=== PATIENT | female | born 1965 | race African-American/Black ===

== ENCOUNTER 2019-06-06 13:48 | Inpatient (IN) | payer BC ==
[2019-06-06] VITALS (7 sets, daily range): BP systolic 94–127; BP diastolic 51–66
[~2019-06-06] VITALS: Ht 165.1 cm; Wt 71.2 kg
--- NOTE | 2019-06-06 14:25 | PHYS DOC ---
Past Medical History Past Medical History: Diabetes-Type II Past Surgical History: No Surgical History Alcohol Use: None Drug Use: None Adult General Chief Complaint Chief Complaint: HYPERGLYCEMIA [facility] HPI Patient is a 53 year old female with history of newly diagnosed diabetes who presents with blood sugar and nausea and vomiting. Patient states she was diagnosed with diabetes mellitus yesterday and started the first dose of metformin last night but since last night has more than 4 episodes of vomiting without diarrhea and constipation, fever and chills, focal neuro deficit. Patient complaining of generalized weakness and low back pain without history of back pain and rated her pain 8/10. Patient had blood sugar of more than 500 at arrival to ER. Review of Systems Review of Systems Constitutional: Denies fever or chills [] Eyes: Denies change in visual acuity, redness, or eye pain [] HENT: Denies nasal congestion or sore throat [] Respiratory: Denies cough or shortness of breath [] Cardiovascular: No additional information not addressed in HPI [] GI: Denies abdominal pain, bloody stools or diarrhea, nausea and vomiting [] : Denies dysuria or hematuria [] Musculoskeletal: Denies back pain or joint pain [] Integument: Denies rash or skin lesions [] Neurologic: Denies headache, focal weakness or sensory changes [] Endocrine: Denies polyuria or polydipsia [] All other systems were reviewed and found to be within normal limits, except as documented in this note. Current Medications Current Medications Allergies Allergies Allergies Coded Allergies Type Severity Reaction Last Updated Verified No Known Drug Allergies 06/06/19 No Physical Exam Physical Exam Constitutional: Well developed, well nourished, moderate distress, non-toxic appearance. [] HENT: Normocephalic, atraumatic, dry oral mucosa Eyes: PERRLA, EOMI, conjunctiva normal, no discharge. [] Neck: Normal range of motion, no tenderness, supple, no stridor. [] Cardiovascular: Tachycardia, no murmur [] Lungs & Thorax: Bilateral breath sounds clear to auscultation [] Abdomen: Bowel sounds normal, soft, no tenderness, no masses, no pulsatile masses. [] Skin: Warm, dry, no erythema, no rash. [] Back: No tenderness, no CVA tenderness. [] Extremities: No tenderness, no cyanosis, no clubbing, ROM intact, no edema. [] Neurologic: Alert and oriented X 3, no focal deficits noted. [] Psychologic: Affect normal, judgement normal, mood normal. [] Current Patient Data Vital Signs Vital Signs Date Time Temp Pulse Resp B/P (MAP) Pulse Ox O2 Delivery O2 Flow Rate FiO2 06/06/19 14:04 110 164/88 (113) 100 Room Air 06/06/19 13:58 97.6 24 97.6 Lab Values Laboratory Tests Test 06/06/19 14:01 06/06/19 14:10 Glucose (Fingerstick) 523 mg/dL (70-99) *H White Blood Count 22.8 x10^3/uL (4.0-11.0) H Red Blood Count 4.73 x10^6/uL (3.50-5.40) Hemoglobin 14.9 g/dL (12.0-15.5) Hematocrit 46.8 % (36.0-47.0) Mean Corpuscular Volume 99 fL (79-100) Mean Corpuscular Hemoglobin 31 pg (25-35) Mean Corpuscular Hemoglobin Concent 32 g/dL (31-37) Red Cell Distribution Width 15.0 % (11.5-14.5) H Platelet Count 348 x10^3/uL (140-400) Neutrophils (%) (Auto) 90 % (31-73) H Lymphocytes (%) (Auto) 4 % (24-48) L Monocytes (%) (Auto) 6 % (0-9) Eosinophils (%) (Auto) 0 % (0-3) Basophils (%) (Auto) 0 % (0-3) Neutrophils # (Auto) 20.4 x10^3/uL (1.8-7.7) H Lymphocytes # (Auto) 0.9 x10^3/uL (1.0-4.8) L Monocytes # (Auto) 1.4 x10^3/uL (0.0-1.1) H Eosinophils # (Auto) 0.0 x10^3/uL (0.0-0.7) Basophils # (Auto) 0.1 x10^3/uL (0.0-0.2) Platelet Estimate Pending Laboratory Tests 06/06/19 14:10 EKG EKG [] Radiology/Procedures Radiology/Procedures [][facility] [address] [place] [address] IMAGING REPORT Signed PATIENT: FLORENTIN ZHOU ACCOUNT: [id number] : 1965 LOCATION: [address] [place] [address] AGE: 53 SEX: F EXAM STATUS: ADM IN ORD. PHYSICIAN: HAZEL GUARDADO MD REASON: DKA and leukocytosis PROCEDURE: PORTABLE CHEST 1V EXAM: Chest, single view. HISTORY: Diabetic ketoacidosis. Leukocytosis. COMPARISON: None. FINDINGS: A frontal view of the chest is obtained. There is no infiltrate, pleural effusion or pneumothorax. The heart is normal in size. IMPRESSION: No acute pulmonary finding. Electronically signed by: Emerita Cuevas MD (06/06/2019 3:54 PM) [place] [id number] DICTATED and SIGNED BY: EMERITA CUEVAS MD DATE: 06/06/19 0959 Course & Med Decision Making Course & Med Decision Making Pertinent Labs and Imaging studies reviewed. (See chart for details) Evaluation of patient in ER showed 53-year-old male patient who diagnosed with diabetic ketoacidosis yesterday and presented to ER with nausea vomiting and severe dehydration. Patient had tachycardia and blood sugar of more than 500 and treated with IV fluid and insulin bolus and drip partial improvement of her condition. Patient had pH of less than 7 and treated with [address] Anguiano presented to ER at 1528 and evaluated the patient.Patient requiring admission for further evaluation and treatment. Discussed with Dr. Anguiano who is in agreement with admission. Discussed findings and plan with patient and family, who acknowledge understanding and agreement. Dragon Disclaimer Dragon Disclaimer This electronic medical record was generated, in whole or in part, using a voice recognition dictation system. Departure Departure Impression: Primary Impression: Diabetic ketoacidosis Additional Impressions: Metabolic acidosis due to diabetes mellitus Leukocytosis Nausea and vomiting Low back pain Renal insufficiency Elevated lipase Disposition: ADMITTED INPATIENT (1528) Admitting Physician: Denton Anguiano (accepted admission at 1528) Condition: GUARDED Referrals: DENTON ANGUIANO MD (PCP) Critical Care Time Critical care time was 70 minutes exclusive of procedures. Problem Qualifiers Primary Impression: Diabetic ketoacidosis Diabetes mellitus type: type 2 Diabetes mellitus complication detail: without coma Qualified Codes: E11.10 - Type 2 diabetes mellitus with ketoacidosis without coma Additional Impressions: Leukocytosis Leukocytosis type: unspecified Qualified Codes: D72.829 - Elevated white blood cell count, unspecified Nausea and vomiting Vomiting type: unspecified Vomiting Intractability: unspecified Qualified Codes: R11.2 - Nausea with vomiting, unspecified Low back pain Chronicity: acute Back pain laterality: unspecified Sciatica presence: unspecified whether sciatica present Qualified Codes: M54.5 - Low back pain HAZEL GUARDADO MD Jun 06, 2019 14:25
[2019-06-06] MEDS ORDERED: ONDANSETRON PF 4 MG/2 ML VIAL. IV ONE (14:30)
[2019-06-06] MEDS ORDERED: IV NORMAL SALINE 1000ML BAG 1,000 ML IV ONE ×3 (14:30→15:00)
[2019-06-06] MEDS ORDERED: INSULIN REGULAR 100 UNIT/ML 3ML VIAL. IV ONE (14:30)
[2019-06-06] MEDS ORDERED: INSULIN,REGULAR 150 UNIT DRIP 150 ML IV ONE (14:30)
[2019-06-06 14:35] LABS: BASO # 0.1 x10^3/uL (0.0-0.2); BASO % 0 % (0-3); EOS % 0 % (0-3); HEMATOCRIT 46.8 % (36.0-47.0); HEMOGLOBIN 14.9 g/dL (12.0-15.5); LYMPH # 0.9 x10^3/uL (1.0-4.8); LYMPH % 4 % (24-48); MEAN CORPUSCULAR HEMOGLOBIN 31 pg (25-35); MEAN CORPUSCULAR HGB CONC 32 g/dL (31-37); MEAN CORPUSCULAR VOLUME 99 fL (79-100); MONO # 1.4 x10^3/uL (0.0-1.1); MONO % 6 % (0-9); NEUT # 20.4 x10^3/uL (1.8-7.7); NEUT % 90 % (31-73); PLATELET COUNT 348 x10^3/uL (140-400); RED BLOOD COUNT 4.73 x10^6/uL (3.50-5.40); WHITE BLOOD COUNT 22.8 x10^3/uL (4.0-11.0)
[2019-06-06 14:49] LABS: BASE EXCESS ABG -28 mmol/L (-3-3); HCO3 ABG 2 mmol/L (21-28); PO2 ABG 134 mmHg (75-108); SAT O2 ABG 98 % (92-99)
[2019-06-06 14:50] LABS: FIO2 ABG 21; PCO2 ABG < 15 mmHg (35-46)
[2019-06-06] MEDS ORDERED: SODIUM BICARB ADULT 8.4% 50 MEQ/50 ML DISP.SYRIN. IV ONE (15:00)
[2019-06-06 15:11] LABS: ALBUMIN 4.6 g/dL (3.4-5.0); ALK PHOS 79 U/L (46-116); ALT (SGPT) 23 U/L (14-59); AST (SGOT) 17 U/L (15-37); BLOOD UREA NITROGEN 16 mg/dL (7-20); BUN/CREATININE RATIO 11 (6-20); CALCIUM 9.6 mg/dL (8.5-10.1); CHLORIDE 93 mmol/L (98-107); CREATININE 1.4 mg/dL (0.6-1.0); GFR 47.2; LIPASE 432 U/L (73-393); MAGNESIUM 2.7 mg/dL (1.8-2.4); PHOSPHORUS 6.5 mg/dL (2.6-4.7); POTASSIUM 4.8 mmol/L (3.5-5.1); SODIUM 130 mmol/L (136-145); TOTAL BILIRUBIN 0.5 mg/dL (0.2-1.0); TOTAL PROTEIN 9.2 g/dL (6.4-8.2)
[2019-06-06 15:14] LABS: ANION GAP 32 (6-14)
[2019-06-06 15:16] LABS: GLUCOSE 567 mg/dL (70-99)
[2019-06-06 15:17] LABS: CARBON DIOXIDE < 5 mmol/L (21-32)
[2019-06-06] MEDS ORDERED: fentaNYL PF VIAL 100 MCG/2 ML VIAL IVP ONE (15:30)
[2019-06-06] MEDS ORDERED: ACETAMINOPHEN 325 MG TABLET. PO PRN (15:45)
--- NOTE | 2019-06-06 15:57 | RAD ---
EXAM: Chest, single view. HISTORY: Diabetic ketoacidosis. Leukocytosis. COMPARISON: None. FINDINGS: A frontal view of the chest is obtained. There is no infiltrate, pleural effusion or pneumothorax. The heart is normal in size. IMPRESSION: No acute pulmonary finding. Electronically signed by: Emerita Guerra MD (06/06/2019 3:54 PM) [place] [id number]
--- NOTE | 2019-06-06 16:07 | PDOC ---
Provider Note Provider Note history and physical dictated # [id number] ELKE RAYO MD Jun 06, 2019 16:07
[2019-06-06] MEDS: SODIUM BICARBONATE VIAL 100 MEQ in IV 1/2 NORMAL SALINE 1,000 ML IV SCH (16:35)
[2019-06-06] MEDS: PIPERACILLIN/TAZOBACTAM 3.375 GM in IV NORMAL SALINE 50ML 50 ML IV SCH (16:36)
[2019-06-06] MEDS: IV NORMAL SALINE 1000ML BAG 1,000 ML IV SCH (16:39)
--- NOTE | 2019-06-06 16:45 | NUR ---
Rec'd from ER per cart .Awake and alert but RR increased. VSS. IV x 2. Bicarb started. NS infusing 3rd liter. Pt denies pain at this time. Family at bedside. BC and LA drawn and Abx started. On room air. temp below normal. Blankets applied
[2019-06-06] MEDS ORDERED: FLU VAX QS 2019-20 (36MOS+)/PF 0.5 ML SYRINGE. VAX IM ONE (17:30)
--- NOTE | 2019-06-06 18:00 | NUR ---
LA 4.[address] Anguiano. order rec'd to follow DKA protocol for labs and IV fluids and Glucostabilizer for Ins gtt. Next lab at 1845. Pt states she is feeling better. No N/V. HR less. RR less/ IV x 2 patent UO good. Pt voids w/o diff Family at bedside. Ice chips offered
--- NOTE | 2019-06-06 18:28 | HP ---
ADMIT DATE: 06/06/2019 LOCATION: Intensive care unit HISTORY OF PRESENT ILLNESS: The patient is a 53-year-old white female who actually was seen in the office yesterday with a 2-week history of urine frequency, increased thirst and fatigue and with a previous history of gestational diabetes mellitus 30 years ago and no family history of diabetes who has been drinking 7 Up daily and eating some sweets and has lost 13 pounds since July 2018 on our office scale. Also complained of dysuria for a couple of days without hematuria and had a good appetite without any diarrhea or abdominal pain. In the office, urinalysis was done, which showed 4+ protein in the urine. Fingerstick showed a blood sugar of 285 and the patient was told to avoid sweets and refined carbohydrates and they check her blood sugars before meals t.i.d. at bedtime and she was given a script for glucose meter and strips and her also has a glucose meter at home and she was told to get blood test done yesterday and returned to the office in 2 days to decide what to do to treat her diabetes. She was started on metformin 500 mg b.i.d. yesterday and only took one dose last night. She apparently went out to dinner last night and during the night vomited four times. She denied any dysuria. She had some bilateral lower back discomfort. Denied any abdominal pain. There was no diarrhea. Denied any fever or chills. She went to the [facility] Emergency Room after apparently calling my medical terminologist earlier today. I was not in the office at that time. She was sent to the Emergency Room where she was noted to be in diabetic ketoacidosis. The patient's arterial blood gas showed a pH 7.97 and her pCO2 in her blood test is less than 5 with a BUN of 16, creatinine 1.4. Sodium 130, blood sugar was 567, 245 and 523 by fingerstick in the Emergency Room, magnesium was 2.7. Potassium was 4.8, lipase was elevated at 432. As mentioned, her white count was 22.8 and she had 90 polys and 4 lymphocytes. She received 10 units of regular insulin bolus in the Emergency Room. We started her on an insulin drip and ER doctor wrote for 3 liters of IV fluids. Also has Zofran ordered 4 mg IV x 1 in the ER. She was given 3000 mL of normal saline bolus ordered. She also was given 50 mg of sodium bicarbonate IV x 1 and fentanyl 50 mcg IV x 1 apparently for back pain in the Emergency Room. The patient will be admitted to the Intensive Care Unit on an insulin drip, which was started in the Emergency Room. I saw her in the Emergency Room and she was hyperventilating consistent with her diabetic ketoacidosis. Most of her history is obtained some from the patient but also provided by the at bedside. ALLERGIES AND INTOLERANCES: None. MEDICATIONS: Metformin 500 mg b.i.d., but she just took one dose last night and has not taken another dose. PAST MEDICAL HISTORY: She has a history of hyperlipidemia, allergic rhinitis. She had benign ovarian mass is excised in 1994. She has a history of gestational diabetes 30 years ago. SOCIAL HISTORY: She does not recently drink alcohol according to the , does not smoke cigarettes. FAMILY HISTORY: Not contributory for diabetes. REVIEW OF SYSTEMS: GENERAL: She denies any fever or chills. CARDIOVASCULAR: No chest pain. PULMONARY: She has shortness of breath due to diabetic ketoacidosis. ENDOCRINE: Newly diagnosed diabetes. MUSCULOSKELETAL: She does have some bilateral low back pain. GENITOURINARY: She denies any dysuria today. GASTROINTESTINAL: She had nausea and vomiting, probably from the ketoacidosis, but denies any other GI symptoms. The rest of review of systems is negative except as stated in history of present illness. PHYSICAL EXAMINATION: VITAL SIGNS: Temperature is 97.6 degrees, apical pulse is 119, respiratory rate 24, blood pressure 196/94 initially. Oxygen saturation 100% on room air. HEENT: Eyes: Gaze is conjugate. Mouth: Tongue is midline. There is no yeast. NECK: No cervical lymphadenopathy or thyroid enlargement. HEART: Reveals an S1, S2. There is no S3 or murmur. LUNGS: Clear. Examination of her back reveals no CVA tenderness bilaterally. Most of her pain is in the lumbar muscles bilaterally. ABDOMEN: Soft, bowel sounds positive, not distended with no hepatosplenomegaly, masses or tenderness. EXTREMITIES: Lower extremities without edema. Dorsalis pedis pulses present. 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 SKIN: No rashes. LABORATORY DATA: Her white count is 22.8 with a hemoglobin of 14.9, platelet count of 348,000, 90 polys and 4 lymphocytes. Arterial blood gas showed a pH 6.97, pCO2 is less than 15 and a pO2 was 134. Sodium 130, potassium 4.8, chloride 93, total CO2 was less than 5, BUN 16, creatinine 1.4, blood sugar was 567, Magnesium 2.7, phosphorus 6.5. Liver function tests were okay. Total protein was 9.2 with an albumin of 4.6 and the lipase was 432. There was no amylase done. She had small positive acetone noted. She had a chest x-ray done, which showed no acute abnormality. No infiltrate or pleural effusion. Heart size was normal. Electrocardiogram was ordered and I have not that back yet. ASSESSMENT: 1. Newly diagnosed diabetes mellitus with diabetic ketoacidosis. 2. Hyponatremia related to diabetic ketoacidosis. 3. Acute kidney injury, most likely related to acute diabetic ketoacidosis and intravascular volume depletion. 4. Leukocytosis. She does have a left shift, need to rule out an infection. PLAN: The plan at this time is to put her in the Intensive Care Unit. Continue the insulin drip. Monitor her blood sugars hourly with a goal of blood sugar between 100-150. The labs in the office were ordered and still were not back yet when I went to the office earlier today. We will get a hemoglobin A1c, check her basic metabolic profile in 4 hours and repeated every 4 hours if necessary. I spoke with the pharmacist and we will try to break her acidosis and give her IV one-half normal saline with 2 amps of sodium bicarbonate at 80 an hour and then second IV normal saline at 70 an hour for a total IV fluids 150 an hour. Once the acidosis is broken, we will discontinue the bicarbonate drip. I spoke with the ICU nurse moments ago to try to get her in the ICU as quickly as possible. We will recheck the CBC, CMP tomorrow. We will get blood cultures x 2, urinalysis, urine culture and we will consult Dr. Danie Santiago for the Leukocytosis. Repeat a CBC and CMP tomorrow. Check an amylase and lipase tomorrow. We will make her n.p.o. for the time being. I ordered Zofran 4 mg IV every 6 hours p.r.n. for nausea and vomiting. Started on some Zosyn 3.375 grams IV every 6 hours. As mentioned, the blood and urine cultures. We can order some SCDs for deep vein thrombosis prophylaxis. An EKG has been ordered also. I discussed the case with the Emergency Room physician and also the pharmacist. ELKE RAYO MD DR: ALINA/dede JOB#: [id number] / [id number]
[2019-06-06] MEDS: IV DEXTROSE 5% - 0.9 % NACL 1,000 ML IV SCH ×2 (19:00→22:41)
[2019-06-06 19:12] LABS: % BANDS 1 % (0-9); % BASOS 1 % (0-3); % LYMPHS 5 % (24-48); % MONOS 3 % (0-10); % SEGS 90 % (35-66); ANISOCYTOSIS SLIGHT; PLT ESTIMATE INCREASED (ADEQUATE); TEAR DROP CELLS OCC
[2019-06-06] MEDS ORDERED: METF500T16 PO (19:12)
[2019-06-06 20:17] LABS: HEMATOCRIT 39.3 % (36.0-47.0); RED BLOOD COUNT 4.16 x10^6/uL (3.50-5.40); RED CELL DISTRIBUTION WIDTH 14.1 % (11.5-14.5); WHITE BLOOD COUNT 17.7 x10^3/uL (4.0-11.0)
[2019-06-06 20:37] LABS: ALBUMIN 3.2 g/dL (3.4-5.0); ALBUMIN/GLOBULIN RATIO 0.9 (1.0-1.7); CALCIUM 7.8 mg/dL (8.5-10.1); GFR 69.7; PHOSPHORUS 1.4 mg/dL (2.6-4.7); POTASSIUM 3.9 mmol/L (3.5-5.1); TOTAL BILIRUBIN 0.4 mg/dL (0.2-1.0); TOTAL PROTEIN 6.7 g/dL (6.4-8.2)
[2019-06-06] MEDS ORDERED: SODIUM PHOSPHATE 20 MMOL in IV DEXTROSE 5% 250 ML IV PRN (21:15)
--- NOTE | 2019-06-06 22:00 | NUR ---
Critical CO2 of 9 called to this RN at 2036. Dr. Madsen notified at 2044. Received order to continue bicarb gtt as ordered, draw labs in am as ordered, do not draw labs Q4 hours, continue insulin gtt through tomorrow, pt to eat diabetic diet at breakfast. Nursing free text order written. Diet order added into system to start in am. Will continue to monitor.
[2019-06-06] MEDS: POTASSIUM CHLORIDE 10MEQ 100 ML IV SCH (22:40)
[2019-06-07] VITALS (14 sets, daily range): BP systolic 85–128; BP diastolic 55–80
[2019-06-07] MEDS: PIPERACILLIN/TAZOBACTAM 3.375 GM in IV NORMAL SALINE 50ML 50 ML IV SCH ×5 (00:01→23:18)
[2019-06-07] MEDS: POTASSIUM CHLORIDE 10MEQ 100 ML IV SCH ×3 (00:02→02:16)
[2019-06-07] MEDS ORDERED: INSULIN REGULAR VIAL 150 UNIT in 0.9 % SODIUM CHLORIDE 150ML 150 ML IV PRN (00:30)
[2019-06-07] MEDS: IV DEXTROSE 5% - 0.9 % NACL 1,000 ML IV SCH (03:32)
[2019-06-07] MEDS: ONDANSETRON PF 4 MG/2 ML VIAL. IVP PRN ×2 (04:09→20:55)
[2019-06-07 05:11] LABS: BASO % 0 % (0-3); EOS % 0 % (0-3); HEMATOCRIT 32.4 % (36.0-47.0); HEMOGLOBIN 11.1 g/dL (12.0-15.5); LYMPH # 1.1 x10^3/uL (1.0-4.8); LYMPH % 10 % (24-48); MEAN CORPUSCULAR HEMOGLOBIN 31 pg (25-35); MEAN CORPUSCULAR HGB CONC 34 g/dL (31-37); MEAN CORPUSCULAR VOLUME 91 fL (79-100); MONO # 1.1 x10^3/uL (0.0-1.1); MONO % 10 % (0-9); NEUT % 81 % (31-73); PLATELET COUNT 176 x10^3/uL (140-400); RED BLOOD COUNT 3.55 x10^6/uL (3.50-5.40); RED CELL DISTRIBUTION WIDTH 13.6 % (11.5-14.5); WHITE BLOOD COUNT 11.1 x10^3/uL (4.0-11.0)
[2019-06-07] MEDS: SODIUM BICARBONATE VIAL 100 MEQ in IV 1/2 NORMAL SALINE 1,000 ML IV SCH (06:16)
[2019-06-07] MEDS: IV NORMAL SALINE 1000ML BAG 1,000 ML IV SCH (06:18)
--- NOTE | 2019-06-07 07:04 | EKG ---
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
[2019-06-07 08:05] LABS: ALBUMIN 2.7 g/dL (3.4-5.0); ALBUMIN/GLOBULIN RATIO 1.1 (1.0-1.7); CALCIUM 7.3 mg/dL (8.5-10.1); CREATININE 0.8 mg/dL (0.6-1.0); GFR 90.1; MAGNESIUM 1.6 mg/dL (1.8-2.4); TOTAL BILIRUBIN 0.2 mg/dL (0.2-1.0); TOTAL PROTEIN 5.2 g/dL (6.4-8.2)
[2019-06-07 08:08] LABS: CHOLESTEROL/HDL RATIO 4.9; POTASSIUM 2.8 mmol/L (3.5-5.1)
[2019-06-07] MEDS ORDERED: POTASSIUM CHLORIDE 20 MEQ TABLET.ER. PO ONE (08:30)
[2019-06-07] MEDS ORDERED: INSULIN LISPRO 300 UNITS/3 ML VIAL. SQ SCH (08:30)
[2019-06-07] MEDS ORDERED: MAGNESIUM SULFATE 2GM 50 ML IV ONE (08:30)
[2019-06-07] MEDS ORDERED: INSULIN GLARGINE SYRINGE. SQ SCH (08:30)
[2019-06-07] MEDS: IV 1/2 NORMAL SALINE 1,000 ML IV SCH ×2 (09:00→23:18)
--- NOTE | 2019-06-07 09:06 | CONS ---
DATE OF CONSULTATION: 06/07/2019 REFERRING PHYSICIAN: Dr. Anguiano. REASON FOR CONSULTATION: Leukocytosis. HISTORY OF PRESENT ILLNESS: A 53-year-old female newly diagnosed with diabetes, who presented to the ER on 06/06/2019 with nausea, vomiting and high blood sugar. The patient started metformin the previous day, started having episodes of vomiting without diarrhea, fevers or chills. The patient had increased frequency. Denies any dysuria. Had generalized weakness, low back pain. The patient was found to have a white count of 22,000 with lactic acidosis, NEEL, hyponatremia, high amylase, high lipase. She was started on insulin. Chest x-ray did not show any acute abnormality. She was started on Zosyn. ID consult has been requested for antibiotic management. This morning, the patient feels better. She denies any further nausea or vomiting. She is hungry. Denies any diarrhea or abdominal pain, shortness of breath, headache, cough, chest pain, dysuria, hematuria, rash, sick contact. PAST MEDICAL HISTORY: Newly diagnosed diabetes, hyperlipidemia, allergic rhinitis, ovarian mass excised in 1994. SOCIAL HISTORY: Denies smoking, ETOH, or illicit drug use. Lives with her . FAMILY HISTORY: As per HPI. CURRENT MEDICATIONS: Zosyn. Other medications reviewed in medication list. ALLERGIES: None. PHYSICAL EXAMINATION: VITAL SIGNS: Temperature 98, pulse 77, respiratory rate 14, blood pressure 88/55, oxygen saturation 98% on room air. GENERAL: Alert, oriented x 3 female, lying in bed comfortably, in no acute distress, pleasant, cooperative. HEENT: Normocephalic, atraumatic, anicteric. No thrush. Oral mucosa moist. NECK: Supple, no JVD. LUNGS: Clear bilaterally. No wheezing. HEART: S1, S2. No gallops or rubs. ABDOMEN: Soft, nontender, nondistended, no rebound, no guarding. EXTREMITIES: No edema, no cyanosis, no clubbing. DERMATOLOGIC: Warm, dry. No generalized rash. LABORATORY DATA: WBC 11.1, was 22.8, hemoglobin 11.1, hematocrit 32.4, platelets 176. Sodium 142, potassium 3.8, chloride 111, bicarbonate 18, BUN 10, creatinine 0.8, glucose 130, calcium 7.3, magnesium 1.6, alkaline phosphatase 41, total protein 5.2. Amylase 132. Lipase 704. Acetone, small positive. IMAGING: Chest x-ray, no acute infiltrates. IMPRESSION: 1. Leukocytosis, likely reactive, improving. 2. Diabetic ketoacidosis. 3. Acute kidney injury. 4. Hyponatremia. 5. Newly diagnosed diabetes as above. 6. Electrolyte imbalance. 7. High amylase and lipase. RECOMMENDATIONS: 1. Continue empiric Zosyn for now. 2. Follow up cultures and susceptibility results. 3. Follow up labs in a.m. 4. Continue supportive care. 5. Discussed with nursing staff. Thank you, Dr. Anguiano, for consulting Infectious Disease to participate in this patient's care. If you have any questions, do not hesitate to contact me. CHARISSA ALEGRIA MD DR: JANIYA/dede JOB#: [id number] / [id number]
--- NOTE | 2019-06-07 10:42 | PDOC ---
PROGRESS NOTES Subjective Subjective feels better. did not eat much for breakfast as she felt full. no nausea. off of insulin drip. bblood sugar 65 and then 96. levemir and novolog held this morning but spoke with nurse and decreased insulin. lab reviewed. potassium 2.9 and magnesium 1.6 and wbc lower 11.1. albumin 2.7. ldl 141. lipase and amylase elevated. denies abdominal pain and has no abdominal tenderness Objective Objective Vital Signs Date Time Temp Pulse Resp B/P (MAP) Pulse Ox O2 Delivery O2 Flow Rate FiO2 06/07/19 06:00 77 14 85/55 (65) 98 Room Air 06/07/19 04:00 98.0 98.0 Intake and Output 06/07/19 07:00 Intake Total 4725.08 ml Output Total 1300 ml Balance 3425.08 ml Intake IV Total 4725.08 ml Output Urine Total 1300 ml Physical Exam Abdomen: Soft, No tenderness Heart: Regular rate, Normal S1, Normal S2 Extremities: No edema General: Alert HEENT: Atraumatic Lungs: Clear to auscultation Neuro: Normal speech Psych/Mental Status: Mental status NL Skin: No rashes Assessment Assessment Problems1. Newly diagnosed diabetes mellitus with diabetic ketoacidosis.resolved 2. Hyponatremia related to diabetic ketoacidosis. resolved 3. Acute kidney injury, most likely related to acute diabetic ketoacidosis and intravascular volume depletion. resolved 4. Leukocytosis better. hypomagnesemia severe hypokalemia severe protein calorie malnutrition hyperlipidemia Medical Problems: (1) Diabetic ketoacidosis Status: Acute (2) Elevated lipase Status: Acute (3) Leukocytosis Status: Acute (4) Low back pain Status: Acute (5) Metabolic acidosis due to diabetes mellitus Status: Acute (6) Nausea and vomiting Status: Acute (7) Renal insufficiency Status: Acute Plan Plan of Care d/c insulin drip d/c bicarbonate drip start levemir and novolog insulin continue iv zosyn await blood cultures replete kcl iv magnesium now diet and diabetes instruction concerning glucose meter training and insulin administration monitor blood sugars lab tomorrrow start atorvastatin Comment Review of Relevant I have reviewed the following items cain (where applicable) has been applied. Labs Laboratory Tests Test 06/06/19 14:01 06/06/19 14:10 06/06/19 14:40 06/06/19 14:45 Glucose (Fingerstick) 523 mg/dL (70-99) White Blood Count 22.8 x10^3/uL (4.0-11.0) Red Blood Count 4.73 x10^6/uL (3.50-5.40) Hemoglobin 14.9 g/dL (12.0-15.5) Hematocrit 46.8 % (36.0-47.0) Mean Corpuscular Volume 99 fL (79-100) Mean Corpuscular Hemoglobin 31 pg (25-35) Mean Corpuscular Hemoglobin Concent 32 g/dL (31-37) Red Cell Distribution Width 15.0 % (11.5-14.5) Platelet Count 348 x10^3/uL (140-400) Neutrophils (%) (Auto) 90 % (31-73) Lymphocytes (%) (Auto) 4 % (24-48) Monocytes (%) (Auto) 6 % (0-9) Eosinophils (%) (Auto) 0 % (0-3) Basophils (%) (Auto) 0 % (0-3) Neutrophils # (Auto) 20.4 x10^3/uL (1.8-7.7) Lymphocytes # (Auto) 0.9 x10^3/uL (1.0-4.8) Monocytes # (Auto) 1.4 x10^3/uL (0.0-1.1) Eosinophils # (Auto) 0.0 x10^3/uL (0.0-0.7) Basophils # (Auto) 0.1 x10^3/uL (0.0-0.2) Segmented Neutrophils % 90 % (35-66) Band Neutrophils % 1 % (0-9) Lymphocytes % 5 % (24-48) Monocytes % 3 % (0-10) Basophils % 1 % (0-3) Platelet Estimate Increased (ADEQUATE) Anisocytosis Slight Tear Drop Cells Occ O2 Saturation 98 % (92-99) Arterial Blood pH 6.97 (7.35-7.45) Arterial Blood pCO2 at Patient Temp < 15 mmHg (35-46) Arterial Blood pO2 at Patient Temp 134 mmHg (75-108) Arterial Blood HCO3 2 mmol/L (21-28) Arterial Blood Base Excess -28 mmol/L (-3-3) FiO2 21 Sodium Level 130 mmol/L (136-145) Potassium Level 4.8 mmol/L (3.5-5.1) Chloride Level 93 mmol/L (98-107) Carbon Dioxide Level < 5 mmol/L (21-32) Anion Gap 32 (6-14) Blood Urea Nitrogen 16 mg/dL (7-20) Creatinine 1.4 mg/dL (0.6-1.0) Estimated GFR (Cockcroft-Gault) 47.2 BUN/Creatinine Ratio 11 (6-20) Glucose Level 567 mg/dL (70-99) Calcium Level 9.6 mg/dL (8.5-10.1) Phosphorus Level 6.5 mg/dL (2.6-4.7) Magnesium Level 2.7 mg/dL (1.8-2.4) Total Bilirubin 0.5 mg/dL (0.2-1.0) Aspartate Amino Transf (AST/SGOT) 17 U/L (15-37) Alanine Aminotransferase (ALT/SGPT) 23 U/L (14-59) Alkaline Phosphatase 79 U/L (46-116) Total Protein 9.2 g/dL (6.4-8.2) Albumin 4.6 g/dL (3.4-5.0) Albumin/Globulin Ratio 1.0 (1.0-1.7) Lipase 432 U/L (73-393) Acetone Level Sm pos (NEG) Test 06/06/19 16:27 06/06/19 17:00 06/06/19 17:37 06/06/19 18:42 Glucose (Fingerstick) 369 mg/dL (70-99) 294 mg/dL (70-99) 214 mg/dL (70-99) Lactic Acid Level 4.5 mmol/L (0.4-2.0) Test 06/06/19 20:00 06/06/19 20:16 06/06/19 21:25 06/06/19 22:44 White Blood Count 17.7 x10^3/uL (4.0-11.0) Red Blood Count 4.16 x10^6/uL (3.50-5.40) Hemoglobin 13.0 g/dL (12.0-15.5) Hematocrit 39.3 % (36.0-47.0) Mean Corpuscular Volume 94 fL (79-100) Mean Corpuscular Hemoglobin 31 pg (25-35) Mean Corpuscular Hemoglobin Concent 33 g/dL (31-37) Red Cell Distribution Width 14.1 % (11.5-14.5) Platelet Count 210 x10^3/uL (140-400) Sodium Level 138 mmol/L (136-145) Potassium Level 3.9 mmol/L (3.5-5.1) Chloride Level 105 mmol/L (98-107) Carbon Dioxide Level 9 mmol/L (21-32) Anion Gap 24 (6-14) Blood Urea Nitrogen 16 mg/dL (7-20) Creatinine 1.0 mg/dL (0.6-1.0) Estimated GFR (Cockcroft-Gault) 69.7 BUN/Creatinine Ratio 16 (6-20) Glucose Level 230 mg/dL (70-99) Lactic Acid Level 1.8 mmol/L (0.4-2.0) Calcium Level 7.8 mg/dL (8.5-10.1) Phosphorus Level 1.4 mg/dL (2.6-4.7) Total Bilirubin 0.4 mg/dL (0.2-1.0) Aspartate Amino Transf (AST/SGOT) 16 U/L (15-37) Alanine Aminotransferase (ALT/SGPT) 15 U/L (14-59) Alkaline Phosphatase 54 U/L (46-116) Total Protein 6.7 g/dL (6.4-8.2) Albumin 3.2 g/dL (3.4-5.0) Albumin/Globulin Ratio 0.9 (1.0-1.7) Glucose (Fingerstick) 238 mg/dL (70-99) 221 mg/dL (70-99) 219 mg/dL (70-99) Test 06/06/19 23:52 06/07/19 01:20 06/07/19 02:28 06/07/19 03:37 Glucose (Fingerstick) 222 mg/dL (70-99) 225 mg/dL (70-99) 262 mg/dL (70-99) 218 mg/dL (70-99) Test 06/07/19 04:30 06/07/19 04:41 06/07/19 05:46 06/07/19 06:30 White Blood Count 11.1 x10^3/uL (4.0-11.0) Red Blood Count 3.55 x10^6/uL (3.50-5.40) Hemoglobin 11.1 g/dL (12.0-15.5) Hematocrit 32.4 % (36.0-47.0) Mean Corpuscular Volume 91 fL (79-100) Mean Corpuscular Hemoglobin 31 pg (25-35) Mean Corpuscular Hemoglobin Concent 34 g/dL (31-37) Red Cell Distribution Width 13.6 % (11.5-14.5) Platelet Count 176 x10^3/uL (140-400) Neutrophils (%) (Auto) 81 % (31-73) Lymphocytes (%) (Auto) 10 % (24-48) Monocytes (%) (Auto) 10 % (0-9) Eosinophils (%) (Auto) 0 % (0-3) Basophils (%) (Auto) 0 % (0-3) Neutrophils # (Auto) 9.0 x10^3/uL (1.8-7.7) Lymphocytes # (Auto) 1.1 x10^3/uL (1.0-4.8) Monocytes # (Auto) 1.1 x10^3/uL (0.0-1.1) Eosinophils # (Auto) 0.0 x10^3/uL (0.0-0.7) Basophils # (Auto) 0.0 x10^3/uL (0.0-0.2) Glucose (Fingerstick) 173 mg/dL (70-99) 165 mg/dL (70-99) Sodium Level 142 mmol/L (136-145) Potassium Level 2.8 mmol/L (3.5-5.1) Chloride Level 111 mmol/L (98-107) Carbon Dioxide Level 18 mmol/L (21-32) Anion Gap 13 (6-14) Blood Urea Nitrogen 10 mg/dL (7-20) Creatinine 0.8 mg/dL (0.6-1.0) Estimated GFR (Cockcroft-Gault) 90.1 BUN/Creatinine Ratio 13 (6-20) Glucose Level 130 mg/dL (70-99) Calcium Level 7.3 mg/dL (8.5-10.1) Magnesium Level 1.6 mg/dL (1.8-2.4) Total Bilirubin 0.2 mg/dL (0.2-1.0) Aspartate Amino Transf (AST/SGOT) 19 U/L (15-37) Alanine Aminotransferase (ALT/SGPT) 16 U/L (14-59) Alkaline Phosphatase 41 U/L (46-116) Total Protein 5.2 g/dL (6.4-8.2) Albumin 2.7 g/dL (3.4-5.0) Albumin/Globulin Ratio 1.1 (1.0-1.7) Triglycerides Level 63 mg/dL (0-150) Cholesterol Level 193 mg/dL (0-200) LDL Cholesterol, Calculated 141 mg/dL (0-100) VLDL Cholesterol, Calculated 13 mg/dL (0-40) Non-HDL Cholesterol Calculated 154 mg/dL (0-129) HDL Cholesterol 39 mg/dL (40-60) Cholesterol/HDL Ratio 4.9 Amylase Level 132 U/L (25-115) Lipase 704 U/L (73-393) Thyroid Stimulating Hormone (TSH) 1.162 uIU/mL (0.358-3.74) Test 06/07/19 07:05 06/07/19 08:53 06/07/19 09:40 Glucose (Fingerstick) 105 mg/dL (70-99) 65 mg/dL (70-99) 96 mg/dL (70-99) Laboratory Tests Test 06/06/19 14:01 06/06/19 14:10 06/06/19 14:40 06/06/19 14:45 Glucose (Fingerstick) 523 mg/dL (70-99) White Blood Count 22.8 x10^3/uL (4.0-11.0) Red Blood Count 4.73 x10^6/uL (3.50-5.40) Hemoglobin 14.9 g/dL (12.0-15.5) Hematocrit 46.8 % (36.0-47.0) Mean Corpuscular Volume 99 fL (79-100) Mean Corpuscular Hemoglobin 31 pg (25-35) Mean Corpuscular Hemoglobin Concent 32 g/dL (31-37) Red Cell Distribution Width 15.0 % (11.5-14.5) Platelet Count 348 x10^3/uL (140-400) Neutrophils (%) (Auto) 90 % (31-73) Lymphocytes (%) (Auto) 4 % (24-48) Monocytes (%) (Auto) 6 % (0-9) Eosinophils (%) (Auto) 0 % (0-3) Basophils (%) (Auto) 0 % (0-3) Neutrophils # (Auto) 20.4 x10^3/uL (1.8-7.7) Lymphocytes # (Auto) 0.9 x10^3/uL (1.0-4.8) Monocytes # (Auto) 1.4 x10^3/uL (0.0-1.1) Eosinophils # (Auto) 0.0 x10^3/uL (0.0-0.7) Basophils # (Auto) 0.1 x10^3/uL (0.0-0.2) Segmented Neutrophils % 90 % (35-66) Band Neutrophils % 1 % (0-9) Lymphocytes % 5 % (24-48) Monocytes % 3 % (0-10) Basophils % 1 % (0-3) Platelet Estimate Increased (ADEQUATE) Anisocytosis Slight Tear Drop Cells Occ O2 Saturation 98 % (92-99) Arterial Blood pH 6.97 (7.35-7.45) Arterial Blood pCO2 at Patient Temp < 15 mmHg (35-46) Arterial Blood pO2 at Patient Temp 134 mmHg (75-108) Arterial Blood HCO3 2 mmol/L (21-28) Arterial Blood Base Excess -28 mmol/L (-3-3) FiO2 21 Sodium Level 130 mmol/L (136-145) Potassium Level 4.8 mmol/L (3.5-5.1) Chloride Level 93 mmol/L (98-107) Carbon Dioxide Level < 5 mmol/L (21-32) Anion Gap 32 (6-14) Blood Urea Nitrogen 16 mg/dL (7-20) Creatinine 1.4 mg/dL (0.6-1.0) Estimated GFR (Cockcroft-Gault) 47.2 BUN/Creatinine Ratio 11 (6-20) Glucose Level 567 mg/dL (70-99) Calcium Level 9.6 mg/dL (8.5-10.1) Phosphorus Level 6.5 mg/dL (2.6-4.7) Magnesium Level 2.7 mg/dL (1.8-2.4) Total Bilirubin 0.5 mg/dL (0.2-1.0) Aspartate Amino Transf (AST/SGOT) 17 U/L (15-37) Alanine Aminotransferase (ALT/SGPT) 23 U/L (14-59) Alkaline Phosphatase 79 U/L (46-116) Total Protein 9.2 g/dL (6.4-8.2) Albumin 4.6 g/dL (3.4-5.0) Albumin/Globulin Ratio 1.0 (1.0-1.7) Lipase 432 U/L (73-393) Acetone Level Sm pos (NEG) Test 06/06/19 16:27 06/06/19 17:00 06/06/19 17:37 06/06/19 18:42 Glucose (Fingerstick) 369 mg/dL (70-99) 294 mg/dL (70-99) 214 mg/dL (70-99) Lactic Acid Level 4.5 mmol/L (0.4-2.0) Test 06/06/19 20:00 06/06/19 20:16 06/06/19 21:25 06/06/19 22:44 White Blood Count 17.7 x10^3/uL (4.0-11.0) Red Blood Count 4.16 x10^6/uL (3.50-5.40) Hemoglobin 13.0 g/dL (12.0-15.5) Hematocrit 39.3 % (36.0-47.0) Mean Corpuscular Volume 94 fL (79-100) Mean Corpuscular Hemoglobin 31 pg (25-35) Mean Corpuscular Hemoglobin Concent 33 g/dL (31-37) Red Cell Distribution Width 14.1 % (11.5-14.5) Platelet Count 210 x10^3/uL (140-400) Sodium Level 138 mmol/L (136-145) Potassium Level 3.9 mmol/L (3.5-5.1) Chloride Level 105 mmol/L (98-107) Carbon Dioxide Level 9 mmol/L (21-32) Anion Gap 24 (6-14) Blood Urea Nitrogen 16 mg/dL (7-20) Creatinine 1.0 mg/dL (0.6-1.0) Estimated GFR (Cockcroft-Gault) 69.7 BUN/Creatinine Ratio 16 (6-20) Glucose Level 230 mg/dL (70-99) Lactic Acid Level 1.8 mmol/L (0.4-2.0) Calcium Level 7.8 mg/dL (8.5-10.1) Phosphorus Level 1.4 mg/dL (2.6-4.7) Total Bilirubin 0.4 mg/dL (0.2-1.0) Aspartate Amino Transf (AST/SGOT) 16 U/L (15-37) Alanine Aminotransferase (ALT/SGPT) 15 U/L (14-59) Alkaline Phosphatase 54 U/L (46-116) Total Protein 6.7 g/dL (6.4-8.2) Albumin 3.2 g/dL (3.4-5.0) Albumin/Globulin Ratio 0.9 (1.0-1.7) Glucose (Fingerstick) 238 mg/dL (70-99) 221 mg/dL (70-99) 219 mg/dL (70-99) Test 06/06/19 23:52 06/07/19 01:20 06/07/19 02:28 06/07/19 03:37 Glucose (Fingerstick) 222 mg/dL (70-99) 225 mg/dL (70-99) 262 mg/dL (70-99) 218 mg/dL (70-99) Test 06/07/19 04:30 06/07/19 04:41 06/07/19 05:46 06/07/19 06:30 White Blood Count 11.1 x10^3/uL (4.0-11.0) Red Blood Count 3.55 x10^6/uL (3.50-5.40) Hemoglobin 11.1 g/dL (12.0-15.5) Hematocrit 32.4 % (36.0-47.0) Mean Corpuscular Volume 91 fL (79-100) Mean Corpuscular Hemoglobin 31 pg (25-35) Mean Corpuscular Hemoglobin Concent 34 g/dL (31-37) Red Cell Distribution Width 13.6 % (11.5-14.5) Platelet Count 176 x10^3/uL (140-400) Neutrophils (%) (Auto) 81 % (31-73) Lymphocytes (%) (Auto) 10 % (24-48) Monocytes (%) (Auto) 10 % (0-9) Eosinophils (%) (Auto) 0 % (0-3) Basophils (%) (Auto) 0 % (0-3) Neutrophils # (Auto) 9.0 x10^3/uL (1.8-7.7) Lymphocytes # (Auto) 1.1 x10^3/uL (1.0-4.8) Monocytes # (Auto) 1.1 x10^3/uL (0.0-1.1) Eosinophils # (Auto) 0.0 x10^3/uL (0.0-0.7) Basophils # (Auto) 0.0 x10^3/uL (0.0-0.2) Glucose (Fingerstick) 173 mg/dL (70-99) 165 mg/dL (70-99) Sodium Level 142 mmol/L (136-145) Potassium Level 2.8 mmol/L (3.5-5.1) Chloride Level 111 mmol/L (98-107) Carbon Dioxide Level 18 mmol/L (21-32) Anion Gap 13 (6-14) Blood Urea Nitrogen 10 mg/dL (7-20) Creatinine 0.8 mg/dL (0.6-1.0) Estimated GFR (Cockcroft-Gault) 90.1 BUN/Creatinine Ratio 13 (6-20) Glucose Level 130 mg/dL (70-99) Calcium Level 7.3 mg/dL (8.5-10.1) Magnesium Level 1.6 mg/dL (1.8-2.4) Total Bilirubin 0.2 mg/dL (0.2-1.0) Aspartate Amino Transf (AST/SGOT) 19 U/L (15-37) Alanine Aminotransferase (ALT/SGPT) 16 U/L (14-59) Alkaline Phosphatase 41 U/L (46-116) Total Protein 5.2 g/dL (6.4-8.2) Albumin 2.7 g/dL (3.4-5.0) Albumin/Globulin Ratio 1.1 (1.0-1.7) Triglycerides Level 63 mg/dL (0-150) Cholesterol Level 193 mg/dL (0-200) LDL Cholesterol, Calculated 141 mg/dL (0-100) VLDL Cholesterol, Calculated 13 mg/dL (0-40) Non-HDL Cholesterol Calculated 154 mg/dL (0-129) HDL Cholesterol 39 mg/dL (40-60) Cholesterol/HDL Ratio 4.9 Amylase Level 132 U/L (25-115) Lipase 704 U/L (73-393) Thyroid Stimulating Hormone (TSH) 1.162 uIU/mL (0.358-3.74) Test 06/07/19 07:05 06/07/19 08:53 06/07/19 09:40 Glucose (Fingerstick) 105 mg/dL (70-99) 65 mg/dL (70-99) 96 mg/dL (70-99) Medications Current Medications Ondansetron HCl (Zofran) 4 mg 1X ONCE IV Last administered on 06/06/19 14:45; Start 06/06/19 at 14:30; Stop 06/06/19 at 14:31; Status DC Sodium Chloride 1,000 ml @ 1,000 mls/hr 1X ONCE IV Last administered on 06/06/19at 14:45; Start 06/06/19 at 14:30; Stop 06/06/19 at 15:29; Status DC Sodium Chloride 1,000 ml @ 1,000 mls/hr 1X ONCE IV Last administered on 06/06/19at 14:46; Start 06/06/19 at 14:30; Stop 06/06/19 at 15:29; Status DC Insulin Human Regular 150 ml @ 0 mls/hr 1X ONCE IV Last administered on 06/06/19 14:49; Start 06/06/19 at 14:30; Stop 06/06/19 at 14:31; Status DC Insulin Human Regular (HumuLIN R VIAL) 10 unit 1X ONCE IV Last administered on 06/06/19 14:47; Start 06/06/19 at 14:30; Stop 06/06/19 at 14:31; Status DC Sodium Bicarbonate (Sodium Bicarb Adult 8.4% Syr) 50 meq 1X ONCE IV Last administered on 06/06/19 15:56; Start 06/06/19 at 15:00; Stop 06/06/19 at 15:01; Status DC Sodium Chloride 1,000 ml @ 1,000 mls/hr 1X ONCE IV Last administered on 06/06/19 16:36; Start 06/06/19 at 15:00; Stop 06/06/19 at 15:59; Status DC Fentanyl Citrate (Fentanyl 2ml Vial) 50 mcg 1X ONCE IVP Last administered on 12/5/19at 15:57; Start 06/06/19 at 15:30; Stop 06/06/19 at 15:31; Status DC Sodium Chloride 1,000 ml @ 70 mls/hr [id number] IV Last administered on 06/06/19at 16:39; Start 06/06/19 at 16:00; Stop 06/07/19 at 08:21; Status DC Sodium Bicarbonate 100 meq/Sodium Chloride 1,100 ml @ 80 mls/hr [id number] IV Last administered on 06/07/19at 06:16; Start 06/06/19 at 16:00; Stop 06/07/19 at 08:21; Status DC Piperacillin Sod/ Tazobactam Sod 3.375 gm/Sodium Chloride 50 ml @ 100 mls/hr Q6HRS IV Last administered on 06/07/19at 06:16; Start 06/06/19 at 16:00 Acetaminophen (Tylenol) 650 mg Q6HRS PRN PO MILD PAIN / TEMP Last administered on 06/07/19at 08:49; Start 06/06/19 at 15:45 Ondansetron HCl (Zofran) 4 mg PRN Q6HRS PRN IVP NAUSEA/VOMITING Last administered on 06/07/19at 04:09; Start 06/06/19 at 15:45 Influenza Virus Vaccine Quadrival (Afluria Quad 2019-20 (3yr Up) Syringe) 0.5 ml ONCE ONCE VAX IM ; Start 06/06/19 at 17:30; Stop 06/06/19 at 17:31; Status DC Dextrose/Sodium Chloride 1,000 ml @ 250 mls/hr Q4H IV Last administered on 06/07/19at 03:32; Start 06/06/19 at 19:00; Stop 06/07/19 at 08:21; Status DC Potassium Chloride/Water 100 ml @ 100 mls/hr Q1H IV Last administered on 06/07/19at 02:16; Start 06/06/19 at 22:00; Stop 06/07/19 at 01:59; Status DC Sodium Phosphate 20 mmol/Dextrose 256.6667 ml @ 62.5 mls/hr 1X PRN PRN IV SEE COMMENTS Last administered on 06/06/19at 22:40; Start 06/06/19 at 21:15 Insulin Human Regular 150 unit/ Sodium Chloride 151.5 ml @ 0 mls/hr CONT PRN IV SEE I/O RECORD Last administered on 06/07/19at 04:46; Start 06/07/19 at 00:30 Insulin Glargine (Lantus Syringe) 30 unit 1X SQ ; Start 06/07/19 at 08:30 Insulin Human Lispro (HumaLOG) 10 units TIDWMEALS SQ ; Start 06/07/19 at 08:30 Potassium Chloride (Klor-Con) 40 meq 1X ONCE PO Last administered on 06/07/19at 08:50; Start 06/07/19 at 08:30; Stop 06/07/19 at 08:31; Status DC Potassium Chloride (Klor-Con) 40 meq 1X ONCE PO ; Start 06/07/19 at 12:00; Stop 06/07/19 at 12:01 Magnesium Sulfate 50 ml @ 25 mls/hr 1X ONCE IV Last administered on 06/07/19at 08:49; Start 06/07/19 at 08:30; Stop 06/07/19 at 10:29; Status DC Sodium Chloride 1,000 ml @ 60 mls/hr [id number] IV ; Start 06/07/19 at 09:00 Active Scripts Active Reported Metformin Hcl 500 Mg Tablet 500 Mg PO BIDWMEALS Vitals/I & O Vital Sign - Last 24 Hours 06/06/19 06/06/19 06/06/19 06/06/19 13:58 14:04 14:34 15:04 Temp 97.6 97.6 Pulse 119 110 126 122 Resp 24 B/P (MAP) 196/94 (128) 164/88 (113) 174/96 (122) 180/87 (118) Pulse Ox 100 100 98 98 O2 Delivery Room Air Room Air Room Air Room Air 06/06/19 06/06/19 06/06/19 06/06/19 15:34 15:57 16:04 16:30 Temp 96.9 96.9 Pulse 112 120 120 Resp 24 28 28 B/P (MAP) 182/83 (116) 121/73 (89) 127/63 (84) Pulse Ox 100 100 100 100 O2 Delivery Room Air Room Air Room Air Room Air 06/06/19 06/06/19 06/06/19 06/06/19 17:00 17:00 19:00 20:00 Temp 97.9 98.1 97.9 98.1 Pulse 117 96 94 Resp 28 18 20 B/P (MAP) 120/66 (84) 103/61 (75) 96/59 (71) Pulse Ox 100 100 99 O2 Delivery Room Air Room Air Room Air Room Air 06/06/19 06/06/19 06/06/19 06/06/19 20:00 21:00 22:00 23:00 Pulse 90 88 86 Resp 16 16 19 B/P (MAP) 94/51 (65) 101/58 (72) 102/54 (70) Pulse Ox 100 100 100 O2 Delivery Room Air Room Air Room Air Room Air 06/06/19 06/07/19 06/07/19 06/07/19 23:59 00:01 01:00 02:00 Temp 97.9 97.9 Pulse 83 80 86 Resp 15 16 14 B/P (MAP) 101/58 (72) 117/67 (84) 100/57 (71) Pulse Ox 100 100 98 O2 Delivery Room Air Room Air Room Air Room Air 06/07/19 06/07/19 06/07/19 06/07/19 03:00 04:00 04:00 05:00 Temp 98.0 98.0 Pulse 83 81 81 Resp 16 16 15 B/P (MAP) 104/59 (74) 108/60 (76) 116/69 (85) Pulse Ox 98 98 98 O2 Delivery Room Air Room Air Room Air Room Air 06/07/19 06:00 Pulse 77 Resp 14 B/P (MAP) 85/55 (65) Pulse Ox 98 O2 Delivery Room Air Intake and Output 06/06/19 06/06/19 06/07/19 15:00 23:00 07:00 Intake Total 2765 ml 1960.08 ml Output Total 900 ml 400 ml Balance 1865 ml 1560.08 ml ELKE RAYO MD Jun 07, 2019 10:42
[2019-06-07] MEDS ORDERED: INSULIN GLARGINE SYRINGE. SQ ONE (11:00)
--- NOTE | 2019-06-07 11:22 | NUR ---
RN notified Dr. Anguiano of patient's critical K 2.8. Order received to give 40 MEQ PO now and 40 MEQ PO at 1200. Order received to give 2gm Mg IV as well. Insulin orders received-- and changed. Patient on 4U Novolog TID w/ meals, not to be given if glucose is less than 90, and 10 U Lantus at bedtime. Patient given dietary education from [employer]. RN will educate patient on insulin administration, glucose. Order received from Dr. Anguiano to transfer patient to [facility] unit and maintain patient on 1/2 NS at 60ml/hr. See EMAR.
[2019-06-07] MEDS ORDERED: POTASSIUM CHLORIDE 10 MEQ TABLET.ER. PO ONE (12:00)
[2019-06-07] MEDS: INSULIN LISPRO 300 UNITS/3 ML VIAL. SQ SCH ×2 (12:28→17:43)
--- NOTE | 2019-06-07 12:43 | NUR ---
SS following up with discharge planning. SS reviewed pt chart. Pt is from home with spouse and is currently on room air. SS will continue to follow for discharge planning.
--- NOTE | 2019-06-07 16:03 | NUR ---
Pt transferred from ICU to room 565, report received for FORTUNATO Leary.
[2019-06-07] MEDS: ATORVASTATIN CALCIUM 10 MG TABLET. PO SCH (20:52)
[2019-06-07] MEDS ORDERED: METOCLOPRAMIDE HCL 10 MG/2 ML VIAL. IVP PRN (23:15)
[2019-06-07] MEDS: PROCHLORPERAZINE 10 MG/2 ML VIAL. IV PRN (23:16)
[2019-06-08 00:07] LABS: HEMOGLOBIN A1C 14.1 % (4.8-5.6)
[2019-06-08 03:06] VITALS: BP 127/78
[2019-06-08] MEDS: PIPERACILLIN/TAZOBACTAM 3.375 GM in IV NORMAL SALINE 50ML 50 ML IV SCH ×2 (05:04→12:07)
[2019-06-08 05:41] LABS: BASO % 0 % (0-3); EOS % 0 % (0-3); HEMATOCRIT 34.5 % (36.0-47.0); HEMOGLOBIN 11.7 g/dL (12.0-15.5); LYMPH # 0.7 x10^3/uL (1.0-4.8); LYMPH % 7 % (24-48); MEAN CORPUSCULAR HEMOGLOBIN 31 pg (25-35); MEAN CORPUSCULAR HGB CONC 34 g/dL (31-37); MEAN CORPUSCULAR VOLUME 92 fL (79-100); MONO # 0.7 x10^3/uL (0.0-1.1); MONO % 7 % (0-9); NEUT # 8.3 x10^3/uL (1.8-7.7); NEUT % 85 % (31-73); PLATELET COUNT 157 x10^3/uL (140-400); RED BLOOD COUNT 3.75 x10^6/uL (3.50-5.40); WHITE BLOOD COUNT 9.7 x10^3/uL (4.0-11.0)
[2019-06-08 05:49] LABS: CREATININE 0.7 mg/dL (0.6-1.0); GFR 105.1; MAGNESIUM 2.1 mg/dL (1.8-2.4); POTASSIUM 3.8 mmol/L (3.5-5.1)
[2019-06-08 07:30] VITALS: BP 124/82
[2019-06-08] MEDS: INSULIN LISPRO 300 UNITS/3 ML VIAL. SQ SCH ×3 (09:11→17:50)
--- NOTE | 2019-06-08 11:00 | PDOC ---
PROGRESS NOTES Subjective Subjective has recurrent nausea and vomiting and not eating well. fbs 237. lab reviewed. sbc okay. bicarbonate low 14. blood cultures neg so far. amylase and lipase okay. denies abdominal pain . bowels are okay. discussed with Objective Objective Vital Signs Date Time Temp Pulse Resp B/P (MAP) Pulse Ox O2 Delivery O2 Flow Rate FiO2 06/08/19 07:30 97.9 81 20 124/82 (96) 98 Room Air 97.9 Intake and Output 06/08/19 07:00 Intake Total 1600 ml Output Total 0 ml Balance 1600 ml Intake Oral 1600 ml Output Urine Total 0 ml # Voids 3 # Bowel Movements 1 Physical Exam Abdomen: Normal bowel sounds, Soft, No tenderness Heart: Regular rate, Normal S1, Normal S2 Extremities: No edema General: Alert HEENT: Atraumatic Lungs: Clear to auscultation Neuro: Normal speech Psych/Mental Status: Mental status NL Skin: No rashes Assessment Assessment Problems1. Newly diagnosed diabetes mellitus with diabetic ketoacidosis.resolved. hyperglycemia.sodium bicarbonate still low 2. Hyponatremia related to diabetic ketoacidosis. resolved 3. Acute kidney injury, most likely related to acute diabetic ketoacidosis and intravascular volume depletion. resolved 4. Leukocytosis resolved hypomagnesemia resolved severe hypokalemia resolved severe protein calorie malnutrition hyperlipidemia nausea and vomiting. rule out diabetic gastroparesis Medical Problems: (1) Diabetic ketoacidosis Status: Acute (2) Elevated lipase Status: Acute (3) Leukocytosis Status: Acute (4) Low back pain Status: Acute (5) Metabolic acidosis due to diabetes mellitus Status: Acute (6) Nausea and vomiting Status: Acute (7) Renal insufficiency Status: Acute Plan Plan of Care increase insulin continue iv fluids start zofran ac tid and prn start metoclopramide ac tid and hs antibiotcs per ID diabetes education for insulin administration and glucose meter training and checking blood sugars Comment Review of Relevant I have reviewed the following items cain (where applicable) has been applied. Labs Laboratory Tests Test 06/06/19 14:01 06/06/19 14:10 06/06/19 14:40 06/06/19 14:45 Glucose (Fingerstick) 523 mg/dL (70-99) White Blood Count 22.8 x10^3/uL (4.0-11.0) Red Blood Count 4.73 x10^6/uL (3.50-5.40) Hemoglobin 14.9 g/dL (12.0-15.5) Hematocrit 46.8 % (36.0-47.0) Mean Corpuscular Volume 99 fL (79-100) Mean Corpuscular Hemoglobin 31 pg (25-35) Mean Corpuscular Hemoglobin Concent 32 g/dL (31-37) Red Cell Distribution Width 15.0 % (11.5-14.5) Platelet Count 348 x10^3/uL (140-400) Neutrophils (%) (Auto) 90 % (31-73) Lymphocytes (%) (Auto) 4 % (24-48) Monocytes (%) (Auto) 6 % (0-9) Eosinophils (%) (Auto) 0 % (0-3) Basophils (%) (Auto) 0 % (0-3) Neutrophils # (Auto) 20.4 x10^3/uL (1.8-7.7) Lymphocytes # (Auto) 0.9 x10^3/uL (1.0-4.8) Monocytes # (Auto) 1.4 x10^3/uL (0.0-1.1) Eosinophils # (Auto) 0.0 x10^3/uL (0.0-0.7) Basophils # (Auto) 0.1 x10^3/uL (0.0-0.2) Segmented Neutrophils % 90 % (35-66) Band Neutrophils % 1 % (0-9) Lymphocytes % 5 % (24-48) Monocytes % 3 % (0-10) Basophils % 1 % (0-3) Platelet Estimate Increased (ADEQUATE) Anisocytosis Slight Tear Drop Cells Occ O2 Saturation 98 % (92-99) Arterial Blood pH 6.97 (7.35-7.45) Arterial Blood pCO2 at Patient Temp < 15 mmHg (35-46) Arterial Blood pO2 at Patient Temp 134 mmHg (75-108) Arterial Blood HCO3 2 mmol/L (21-28) Arterial Blood Base Excess -28 mmol/L (-3-3) FiO2 21 Sodium Level 130 mmol/L (136-145) Potassium Level 4.8 mmol/L (3.5-5.1) Chloride Level 93 mmol/L (98-107) Carbon Dioxide Level < 5 mmol/L (21-32) Anion Gap 32 (6-14) Blood Urea Nitrogen 16 mg/dL (7-20) Creatinine 1.4 mg/dL (0.6-1.0) Estimated GFR (Cockcroft-Gault) 47.2 BUN/Creatinine Ratio 11 (6-20) Glucose Level 567 mg/dL (70-99) Calcium Level 9.6 mg/dL (8.5-10.1) Phosphorus Level 6.5 mg/dL (2.6-4.7) Magnesium Level 2.7 mg/dL (1.8-2.4) Total Bilirubin 0.5 mg/dL (0.2-1.0) Aspartate Amino Transf (AST/SGOT) 17 U/L (15-37) Alanine Aminotransferase (ALT/SGPT) 23 U/L (14-59) Alkaline Phosphatase 79 U/L (46-116) Total Protein 9.2 g/dL (6.4-8.2) Albumin 4.6 g/dL (3.4-5.0) Albumin/Globulin Ratio 1.0 (1.0-1.7) Lipase 432 U/L (73-393) Acetone Level Sm pos (NEG) Test 06/06/19 16:27 06/06/19 17:00 06/06/19 17:37 06/06/19 18:42 Glucose (Fingerstick) 369 mg/dL (70-99) 294 mg/dL (70-99) 214 mg/dL (70-99) Lactic Acid Level 4.5 mmol/L (0.4-2.0) Test 06/06/19 20:00 06/06/19 20:16 06/06/19 21:25 06/06/19 22:44 White Blood Count 17.7 x10^3/uL (4.0-11.0) Red Blood Count 4.16 x10^6/uL (3.50-5.40) Hemoglobin 13.0 g/dL (12.0-15.5) Hematocrit 39.3 % (36.0-47.0) Mean Corpuscular Volume 94 fL (79-100) Mean Corpuscular Hemoglobin 31 pg (25-35) Mean Corpuscular Hemoglobin Concent 33 g/dL (31-37) Red Cell Distribution Width 14.1 % (11.5-14.5) Platelet Count 210 x10^3/uL (140-400) Sodium Level 138 mmol/L (136-145) Potassium Level 3.9 mmol/L (3.5-5.1) Chloride Level 105 mmol/L (98-107) Carbon Dioxide Level 9 mmol/L (21-32) Anion Gap 24 (6-14) Blood Urea Nitrogen 16 mg/dL (7-20) Creatinine 1.0 mg/dL (0.6-1.0) Estimated GFR (Cockcroft-Gault) 69.7 BUN/Creatinine Ratio 16 (6-20) Glucose Level 230 mg/dL (70-99) Lactic Acid Level 1.8 mmol/L (0.4-2.0) Calcium Level 7.8 mg/dL (8.5-10.1) Phosphorus Level 1.4 mg/dL (2.6-4.7) Total Bilirubin 0.4 mg/dL (0.2-1.0) Aspartate Amino Transf (AST/SGOT) 16 U/L (15-37) Alanine Aminotransferase (ALT/SGPT) 15 U/L (14-59) Alkaline Phosphatase 54 U/L (46-116) Total Protein 6.7 g/dL (6.4-8.2) Albumin 3.2 g/dL (3.4-5.0) Albumin/Globulin Ratio 0.9 (1.0-1.7) Glucose (Fingerstick) 238 mg/dL (70-99) 221 mg/dL (70-99) 219 mg/dL (70-99) Test 06/06/19 23:52 06/07/19 01:20 06/07/19 02:28 06/07/19 03:37 Glucose (Fingerstick) 222 mg/dL (70-99) 225 mg/dL (70-99) 262 mg/dL (70-99) 218 mg/dL (70-99) Test 06/07/19 04:30 06/07/19 04:41 06/07/19 05:46 06/07/19 06:30 White Blood Count 11.1 x10^3/uL (4.0-11.0) Red Blood Count 3.55 x10^6/uL (3.50-5.40) Hemoglobin 11.1 g/dL (12.0-15.5) Hematocrit 32.4 % (36.0-47.0) Mean Corpuscular Volume 91 fL (79-100) Mean Corpuscular Hemoglobin 31 pg (25-35) Mean Corpuscular Hemoglobin Concent 34 g/dL (31-37) Red Cell Distribution Width 13.6 % (11.5-14.5) Platelet Count 176 x10^3/uL (140-400) Neutrophils (%) (Auto) 81 % (31-73) Lymphocytes (%) (Auto) 10 % (24-48) Monocytes (%) (Auto) 10 % (0-9) Eosinophils (%) (Auto) 0 % (0-3) Basophils (%) (Auto) 0 % (0-3) Neutrophils # (Auto) 9.0 x10^3/uL (1.8-7.7) Lymphocytes # (Auto) 1.1 x10^3/uL (1.0-4.8) Monocytes # (Auto) 1.1 x10^3/uL (0.0-1.1) Eosinophils # (Auto) 0.0 x10^3/uL (0.0-0.7) Basophils # (Auto) 0.0 x10^3/uL (0.0-0.2) Hemoglobin A1c 14.1 % (4.8-5.6) Glucose (Fingerstick) 173 mg/dL (70-99) 165 mg/dL (70-99) Sodium Level 142 mmol/L (136-145) Potassium Level 2.8 mmol/L (3.5-5.1) Chloride Level 111 mmol/L (98-107) Carbon Dioxide Level 18 mmol/L (21-32) Anion Gap 13 (6-14) Blood Urea Nitrogen 10 mg/dL (7-20) Creatinine 0.8 mg/dL (0.6-1.0) Estimated GFR (Cockcroft-Gault) 90.1 BUN/Creatinine Ratio 13 (6-20) Glucose Level 130 mg/dL (70-99) Calcium Level 7.3 mg/dL (8.5-10.1) Magnesium Level 1.6 mg/dL (1.8-2.4) Total Bilirubin 0.2 mg/dL (0.2-1.0) Aspartate Amino Transf (AST/SGOT) 19 U/L (15-37) Alanine Aminotransferase (ALT/SGPT) 16 U/L (14-59) Alkaline Phosphatase 41 U/L (46-116) Total Protein 5.2 g/dL (6.4-8.2) Albumin 2.7 g/dL (3.4-5.0) Albumin/Globulin Ratio 1.1 (1.0-1.7) Triglycerides Level 63 mg/dL (0-150) Cholesterol Level 193 mg/dL (0-200) LDL Cholesterol, Calculated 141 mg/dL (0-100) VLDL Cholesterol, Calculated 13 mg/dL (0-40) Non-HDL Cholesterol Calculated 154 mg/dL (0-129) HDL Cholesterol 39 mg/dL (40-60) Cholesterol/HDL Ratio 4.9 Amylase Level 132 U/L (25-115) Lipase 704 U/L (73-393) Thyroid Stimulating Hormone (TSH) 1.162 uIU/mL (0.358-3.74) Test 06/07/19 07:05 06/07/19 08:53 06/07/19 09:40 06/07/19 11:06 Glucose (Fingerstick) 105 mg/dL (70-99) 65 mg/dL (70-99) 96 mg/dL (70-99) 172 mg/dL (70-99) Test 06/07/19 12:21 06/07/19 16:42 06/07/19 20:33 06/08/19 04:45 Glucose (Fingerstick) 171 mg/dL (70-99) 261 mg/dL (70-99) 194 mg/dL (70-99) White Blood Count 9.7 x10^3/uL (4.0-11.0) Red Blood Count 3.75 x10^6/uL (3.50-5.40) Hemoglobin 11.7 g/dL (12.0-15.5) Hematocrit 34.5 % (36.0-47.0) Mean Corpuscular Volume 92 fL (79-100) Mean Corpuscular Hemoglobin 31 pg (25-35) Mean Corpuscular Hemoglobin Concent 34 g/dL (31-37) Red Cell Distribution Width 14.0 % (11.5-14.5) Platelet Count 157 x10^3/uL (140-400) Neutrophils (%) (Auto) 85 % (31-73) Lymphocytes (%) (Auto) 7 % (24-48) Monocytes (%) (Auto) 7 % (0-9) Eosinophils (%) (Auto) 0 % (0-3) Basophils (%) (Auto) 0 % (0-3) Neutrophils # (Auto) 8.3 x10^3/uL (1.8-7.7) Lymphocytes # (Auto) 0.7 x10^3/uL (1.0-4.8) Monocytes # (Auto) 0.7 x10^3/uL (0.0-1.1) Eosinophils # (Auto) 0.0 x10^3/uL (0.0-0.7) Basophils # (Auto) 0.0 x10^3/uL (0.0-0.2) Sodium Level 137 mmol/L (136-145) Potassium Level 3.8 mmol/L (3.5-5.1) Chloride Level 104 mmol/L (98-107) Carbon Dioxide Level 14 mmol/L (21-32) Anion Gap 19 (6-14) Blood Urea Nitrogen 8 mg/dL (7-20) Creatinine 0.7 mg/dL (0.6-1.0) Estimated GFR (Cockcroft-Gault) 105.1 Glucose Level 272 mg/dL (70-99) Calcium Level 8.0 mg/dL (8.5-10.1) Magnesium Level 2.1 mg/dL (1.8-2.4) Amylase Level 46 U/L (25-115) Lipase 177 U/L (73-393) Test 06/08/19 07:49 Glucose (Fingerstick) 237 mg/dL (70-99) Laboratory Tests Test 06/07/19 11:06 06/07/19 12:21 06/07/19 16:42 06/07/19 20:33 Glucose (Fingerstick) 172 mg/dL (70-99) 171 mg/dL (70-99) 261 mg/dL (70-99) 194 mg/dL (70-99) Test 06/08/19 04:45 06/08/19 07:49 White Blood Count 9.7 x10^3/uL (4.0-11.0) Red Blood Count 3.75 x10^6/uL (3.50-5.40) Hemoglobin 11.7 g/dL (12.0-15.5) Hematocrit 34.5 % (36.0-47.0) Mean Corpuscular Volume 92 fL (79-100) Mean Corpuscular Hemoglobin 31 pg (25-35) Mean Corpuscular Hemoglobin Concent 34 g/dL (31-37) Red Cell Distribution Width 14.0 % (11.5-14.5) Platelet Count 157 x10^3/uL (140-400) Neutrophils (%) (Auto) 85 % (31-73) Lymphocytes (%) (Auto) 7 % (24-48) Monocytes (%) (Auto) 7 % (0-9) Eosinophils (%) (Auto) 0 % (0-3) Basophils (%) (Auto) 0 % (0-3) Neutrophils # (Auto) 8.3 x10^3/uL (1.8-7.7) Lymphocytes # (Auto) 0.7 x10^3/uL (1.0-4.8) Monocytes # (Auto) 0.7 x10^3/uL (0.0-1.1) Eosinophils # (Auto) 0.0 x10^3/uL (0.0-0.7) Basophils # (Auto) 0.0 x10^3/uL (0.0-0.2) Sodium Level 137 mmol/L (136-145) Potassium Level 3.8 mmol/L (3.5-5.1) Chloride Level 104 mmol/L (98-107) Carbon Dioxide Level 14 mmol/L (21-32) Anion Gap 19 (6-14) Blood Urea Nitrogen 8 mg/dL (7-20) Creatinine 0.7 mg/dL (0.6-1.0) Estimated GFR (Cockcroft-Gault) 105.1 Glucose Level 272 mg/dL (70-99) Calcium Level 8.0 mg/dL (8.5-10.1) Magnesium Level 2.1 mg/dL (1.8-2.4) Amylase Level 46 U/L (25-115) Lipase 177 U/L (73-393) Glucose (Fingerstick) 237 mg/dL (70-99) Microbiology 06/06/19 Blood Culture - Preliminary, Resulted NO GROWTH AFTER 1 DAY Medications Current Medications Ondansetron HCl (Zofran) 4 mg 1X ONCE IV Last administered on 06/06/19 14:45; Start 06/06/19 at 14:30; Stop 06/06/19 at 14:31; Status DC Sodium Chloride 1,000 ml @ 1,000 mls/hr 1X ONCE IV Last administered on 06/06/19at 14:45; Start 06/06/19 at 14:30; Stop 06/06/19 at 15:29; Status DC Sodium Chloride 1,000 ml @ 1,000 mls/hr 1X ONCE IV Last administered on 06/06/19at 14:46; Start 06/06/19 at 14:30; Stop 06/06/19 at 15:29; Status DC Insulin Human Regular 150 ml @ 0 mls/hr 1X ONCE IV Last administered on 06/06/19 14:49; Start 06/06/19 at 14:30; Stop 06/06/19 at 14:31; Status DC Insulin Human Regular (HumuLIN R VIAL) 10 unit 1X ONCE IV Last administered on 06/06/19at 14:47; Start 06/06/19 at 14:30; Stop 06/06/19 at 14:31; Status DC Sodium Bicarbonate (Sodium Bicarb Adult 8.4% Syr) 50 meq 1X ONCE IV Last administered on 06/06/19 15:56; Start 06/06/19 at 15:00; Stop 06/06/19 at 15:01; Status DC Sodium Chloride 1,000 ml @ 1,000 mls/hr 1X ONCE IV Last administered on 06/06/19at 16:36; Start 06/06/19 at 15:00; Stop 06/06/19 at 15:59; Status DC Fentanyl Citrate (Fentanyl 2ml Vial) 50 mcg 1X ONCE IVP Last administered on 06/06/19 15:57; Start 06/06/19 at 15:30; Stop 06/06/19 at 15:31; Status DC Sodium Chloride 1,000 ml @ 70 mls/hr [id number] IV Last administered on 06/06/19at 16:39; Start 06/06/19 at 16:00; Stop 06/07/19 at 08:21; Status DC Sodium Bicarbonate 100 meq/Sodium Chloride 1,100 ml @ 80 mls/hr [id number] IV Last administered on 06/07/19at 06:16; Start 06/06/19 at 16:00; Stop 06/07/19 at 08:21; Status DC Piperacillin Sod/ Tazobactam Sod 3.375 gm/Sodium Chloride 50 ml @ 100 mls/hr Q6HRS IV Last administered on 06/08/19at 05:04; Start 06/06/19 at 16:00 Acetaminophen (Tylenol) 650 mg Q6HRS PRN PO MILD PAIN / TEMP Last administered on 06/07/19at 08:49; Start 06/06/19 at 15:45 Ondansetron HCl (Zofran) 4 mg PRN Q6HRS PRN IVP NAUSEA/VOMITING Last administered on 06/07/19at 20:55; Start 06/06/19 at 15:45 Influenza Virus Vaccine Quadrival (Afluria Quad 2019-20 (3yr Up) Syringe) 0.5 ml ONCE ONCE VAX IM ; Start 06/06/19 at 17:30; Stop 06/06/19 at 17:31; Status DC Dextrose/Sodium Chloride 1,000 ml @ 250 mls/hr Q4H IV Last administered on 06/07/19at 03:32; Start 06/06/19 at 19:00; Stop 06/07/19 at 08:21; Status DC Potassium Chloride/Water 100 ml @ 100 mls/hr Q1H IV Last administered on 06/07/19at 02:16; Start 06/06/19 at 22:00; Stop 06/07/19 at 01:59; Status DC Sodium Phosphate 20 mmol/Dextrose 256.6667 ml @ 62.5 mls/hr 1X PRN PRN IV SEE COMMENTS Last administered on 06/06/19at 22:40; Start 06/06/19 at 21:15 Insulin Human Regular 150 unit/ Sodium Chloride 151.5 ml @ 0 mls/hr CONT PRN IV SEE I/O RECORD Last administered on 06/07/19at 04:46; Start 06/07/19 at 00:30; Stop 06/07/19 at 10:47; Status DC Insulin Glargine (Lantus Syringe) 30 unit 1X SQ ; Start 06/07/19 at 08:30; Stop 06/07/19 at 10:55; Status DC Insulin Human Lispro (HumaLOG) 10 units TIDWMEALS SQ ; Start 06/07/19 at 08:30; Stop 06/07/19 at 10:47; Status DC Potassium Chloride (Klor-Con) 40 meq 1X ONCE PO Last administered on 06/07/19at 08:50; Start 06/07/19 at 08:30; Stop 06/07/19 at 08:31; Status DC Potassium Chloride (Klor-Con) 40 meq 1X ONCE PO Last administered on 06/07/19at 12:00; Start 06/07/19 at 12:00; Stop 06/07/19 at 12:01; Status DC Magnesium Sulfate 50 ml @ 25 mls/hr 1X ONCE IV Last administered on 06/07/19at 08:49; Start 06/07/19 at 08:30; Stop 06/07/19 at 10:29; Status DC Sodium Chloride 1,000 ml @ 60 mls/hr [id number] IV Last administered on 06/07/19at 23:18; Start 06/07/19 at 09:00 Insulin Human Lispro (HumaLOG) 4 units TIDWMEALS SQ Last administered on 06/08/19at 09:11; Start 06/07/19 at 12:00 Atorvastatin Calcium (Lipitor) 10 mg QHS PO Last administered on 06/07/19at 20:52; Start 06/07/19 at 21:00 Insulin Glargine (Lantus Syringe) 15 unit QHS SQ ; Start 06/08/19 at 21:00 Insulin Glargine (Lantus Syringe) 30 unit 1X ONCE SQ ; Start 06/07/19 at 11:00; Stop 06/07/19 at 11:01; Status DC Prochlorperazine Edisylate (Compazine) 5 mg PRN Q6HRS PRN IV NAUSEA/VOMITING 2ND CHOICE Last administered on 06/07/19at 23:16; Start 06/07/19 at 23:15 Metoclopramide HCl (Reglan Vial) 10 mg PRN Q6HRS PRN IVP NAUSEA/VOMITING 3RD CHOICE; Start 06/07/19 at 23:15 Active Scripts Active Reported Metformin Hcl 500 Mg Tablet 500 Mg PO BIDWMEALS Vitals/I & O Vital Sign - Last 24 Hours 06/07/19 06/07/19 06/07/19 06/07/19 11:00 16:04 19:00 20:05 Temp 98.5 98.1 98.5 98.1 Pulse 78 81 76 Resp 17 16 20 B/P (MAP) 91/56 (68) 98/57 (71) 108/61 (77) Pulse Ox 98 98 96 O2 Delivery Room Air Room Air Room Air Room Air 06/07/19 06/08/19 06/08/19 23:05 03:06 07:30 Temp 98.9 98.6 97.9 98.9 98.6 97.9 Pulse 79 85 81 Resp 18 20 20 B/P (MAP) 128/80 (96) 127/78 (94) 124/82 (96) Pulse Ox 99 98 98 O2 Delivery Room Air Room Air Room Air Intake and Output 06/07/19 06/07/19 06/08/19 15:00 23:00 07:00 Intake Total 1250 ml 350 ml Output Total 0 ml Balance 1250 ml 350 ml ELKE RAYO MD Jun 08, 2019 11:00
[2019-06-08 11:46] VITALS: BP 138/90
[2019-06-08] MEDS: SODIUM BICARBONATE 650 MG TABLET. PO SCH ×2 (12:06→21:00)
[2019-06-08] MEDS: ONDANSETRON ODT 4 MG TAB.RAPDIS. PO SCH ×2 (12:07→17:44)
[2019-06-08] MEDS: METOCLOPRAMIDE 10 MG TABLET. PO SCH ×3 (12:07→21:00)
--- NOTE | 2019-06-08 13:05 | PDOC ---
Infectious Disease Note Subjective Subjective Nauseous, vomited earlier. + BM Trying to eat some chicken right now Denies F/C/S/SOA ROS ROS per HPI Vital Sign Vital Signs Vital Signs Date Time Temp Pulse Resp B/P (MAP) Pulse Ox O2 Delivery O2 Flow Rate FiO2 06/08/19 11:46 98.0 89 20 138/90 (106) 97 Room Air 98.0 Physical Exam PHYSICAL EXAM GENERAL: Propped up in bed, alert, eating HEENT: Oral cavity moist. NECK: Supple, no JVD. LUNGS: Clear bilaterally. No wheezing. HEART: S1, S2. No gallops or rubs. ABDOMEN: Soft, nontender EXTREMITIES: No edema, no cyanosis, no clubbing. SKIN: Warm, dry. No generalized rash. PIV Labs Lab Laboratory Tests Test 06/07/19 16:42 06/07/19 20:33 06/08/19 04:45 06/08/19 07:49 Glucose (Fingerstick) 261 mg/dL (70-99) 194 mg/dL (70-99) 237 mg/dL (70-99) White Blood Count 9.7 x10^3/uL (4.0-11.0) Red Blood Count 3.75 x10^6/uL (3.50-5.40) Hemoglobin 11.7 g/dL (12.0-15.5) Hematocrit 34.5 % (36.0-47.0) Mean Corpuscular Volume 92 fL (79-100) Mean Corpuscular Hemoglobin 31 pg (25-35) Mean Corpuscular Hemoglobin Concent 34 g/dL (31-37) Red Cell Distribution Width 14.0 % (11.5-14.5) Platelet Count 157 x10^3/uL (140-400) Neutrophils (%) (Auto) 85 % (31-73) Lymphocytes (%) (Auto) 7 % (24-48) Monocytes (%) (Auto) 7 % (0-9) Eosinophils (%) (Auto) 0 % (0-3) Basophils (%) (Auto) 0 % (0-3) Neutrophils # (Auto) 8.3 x10^3/uL (1.8-7.7) Lymphocytes # (Auto) 0.7 x10^3/uL (1.0-4.8) Monocytes # (Auto) 0.7 x10^3/uL (0.0-1.1) Eosinophils # (Auto) 0.0 x10^3/uL (0.0-0.7) Basophils # (Auto) 0.0 x10^3/uL (0.0-0.2) Sodium Level 137 mmol/L (136-145) Potassium Level 3.8 mmol/L (3.5-5.1) Chloride Level 104 mmol/L (98-107) Carbon Dioxide Level 14 mmol/L (21-32) Anion Gap 19 (6-14) Blood Urea Nitrogen 8 mg/dL (7-20) Creatinine 0.7 mg/dL (0.6-1.0) Estimated GFR (Cockcroft-Gault) 105.1 Glucose Level 272 mg/dL (70-99) Calcium Level 8.0 mg/dL (8.5-10.1) Magnesium Level 2.1 mg/dL (1.8-2.4) Amylase Level 46 U/L (25-115) Lipase 177 U/L (73-393) Test 06/08/19 11:51 Glucose (Fingerstick) 237 mg/dL (70-99) Micro Microbiology 06/06/19 Blood Culture - Preliminary, Resulted NO GROWTH AFTER 1 DAY Objective Assessment Leukocytosis, likely reactive, improved Diabetic ketoacidosis. Acute kidney injury. Hyponatremia. Newly diagnosed diabetes. A1C 14.1 Electrolyte imbalance. High amylase and lipase. Plan Plan of Care Zosyn (06/06) BC neg so far WBC improved Zofran per primary Will D/c Zosyn sec to nausea D/w family Attending Co-Sign Attending Co-Sign The patient was seen and interviewed as well as examined at the bedside. The [facility] rt was reviewed. The case was discussed. Agree with the plan of care. RELL OCHOA APRN Jun 08, 2019 13:05 ZHANE STEVENS MD Jun 08, 2019 16:53
[2019-06-08 15:59] VITALS: BP 121/76
[2019-06-08 19:00] VITALS: BP 138/86
[2019-06-08] MEDS: PROCHLORPERAZINE 10 MG/2 ML VIAL. IV PRN (20:17)
[2019-06-08] MEDS: IV 1/2 NORMAL SALINE 1,000 ML IV SCH (20:22)
[2019-06-08] MEDS: ATORVASTATIN CALCIUM 10 MG TABLET. PO SCH (21:00)
[2019-06-08] MEDS ORDERED: INSULIN GLARGINE SYRINGE. SQ SCH ×2 (21:00)
[2019-06-08] MEDS: LACTOBACILLUS RHAMNOSUS GG 1 CAPSULE. PO SCH (21:00)
[2019-06-08 23:00] VITALS: BP 121/70
--- NOTE | 2019-06-08 23:00 | NUR ---
MED ADMINISTRATION NOTE: Patient was worried about receiving 20 units of Lantus this HS without having taken it before. FSBS was 178. Patient agreeable to 5 units of Lantus. 5 units given. Will pass along to day RN.
[2019-06-09 03:08] VITALS: BP 132/84
[2019-06-09 04:58] LABS: BASO % 0 % (0-3); EOS % 0 % (0-3); HEMATOCRIT 35.6 % (36.0-47.0); HEMOGLOBIN 12.2 g/dL (12.0-15.5); LYMPH # 0.7 x10^3/uL (1.0-4.8); LYMPH % 9 % (24-48); MEAN CORPUSCULAR HEMOGLOBIN 31 pg (25-35); MEAN CORPUSCULAR HGB CONC 34 g/dL (31-37); MEAN CORPUSCULAR VOLUME 92 fL (79-100); MONO # 0.6 x10^3/uL (0.0-1.1); MONO % 8 % (0-9); NEUT # 6.7 x10^3/uL (1.8-7.7); NEUT % 83 % (31-73); PLATELET COUNT 154 x10^3/uL (140-400); RED BLOOD COUNT 3.87 x10^6/uL (3.50-5.40); WHITE BLOOD COUNT 8.1 x10^3/uL (4.0-11.0)
[2019-06-09 05:15] LABS: ALBUMIN 2.8 g/dL (3.4-5.0); ALBUMIN/GLOBULIN RATIO 0.8 (1.0-1.7); CALCIUM 8.2 mg/dL (8.5-10.1); CREATININE 0.6 mg/dL (0.6-1.0); GFR 125.6; POTASSIUM 3.2 mmol/L (3.5-5.1); TOTAL BILIRUBIN 0.5 mg/dL (0.2-1.0); TOTAL PROTEIN 6.2 g/dL (6.4-8.2)
[2019-06-09 07:21] VITALS: BP 132/84
[2019-06-09] MEDS: SODIUM BICARBONATE 650 MG TABLET. PO SCH ×2 (08:21→22:01)
[2019-06-09] MEDS: METOCLOPRAMIDE 10 MG TABLET. PO SCH ×4 (08:21→22:01)
[2019-06-09] MEDS: LACTOBACILLUS RHAMNOSUS GG 1 CAPSULE. PO SCH ×2 (08:21→22:01)
[2019-06-09] MEDS: ONDANSETRON ODT 4 MG TAB.RAPDIS. PO SCH ×3 (08:21→16:49)
[2019-06-09] MEDS: INSULIN LISPRO 300 UNITS/3 ML VIAL. SQ SCH ×3 (08:26→16:54)
[2019-06-09] MEDS ORDERED: MAG HYDROX/ALUMINUM HYD/SIMETH 30 ML ORAL.SUSP PO PRN (10:30)
--- NOTE | 2019-06-09 10:38 | PDOC ---
PROGRESS NOTES Subjective Subjective still nauseated with some vomiting. not eating well. denies abdominal pain or gerd. blood sugars and lab reviewed. off of zosyn. blood cultures negative. fbs 222. potassium 3.2 Objective Objective Vital Signs Date Time Temp Pulse Resp B/P (MAP) Pulse Ox O2 Delivery O2 Flow Rate FiO2 06/09/19 07:21 98.5 80 18 132/84 (100) 97 Room Air 98.5 Intake and Output 06/09/19 07:00 # Voids 2 Physical Exam Abdomen: Normal bowel sounds, Soft, No tenderness Heart: Regular rate, Normal S1, Normal S2 Extremities: No edema General: Alert HEENT: Atraumatic Lungs: Clear to auscultation Neuro: Normal speech Psych/Mental Status: Mental status NL Skin: No rashes Assessment Assessment Problems1. Newly diagnosed diabetes mellitus with diabetic ketoacidosis.resolved. hyperglycemia.sodium bicarbonate better 2. Hyponatremia related to diabetic ketoacidosis. resolved 3. Acute kidney injury, most likely related to acute diabetic ketoacidosis and intravascular volume depletion. resolved 4. Leukocytosis resolved hypomagnesemia resolved hypokalemia severe protein calorie malnutrition hyperlipidemia nausea and vomiting persists. rule out diabetic gastroparesis Medical Problems: (1) Diabetic ketoacidosis Status: Acute (2) Elevated lipase Status: Acute (3) Leukocytosis Status: Acute (4) Low back pain Status: Acute (5) Metabolic acidosis due to diabetes mellitus Status: Acute (6) Nausea and vomiting Status: Acute (7) Renal insufficiency Status: Acute Plan Plan of Care GI consult continue iv fluids and change to normal saline adjust insulin continue oral sodium bicarbonate start protonix continue metoclopramide and zofran replete kcl lab tomorrow Comment Review of Relevant I have reviewed the following items cain (where applicable) has been applied. Labs Laboratory Tests Test 06/07/19 11:06 06/07/19 12:21 06/07/19 16:42 06/07/19 20:33 Glucose (Fingerstick) 172 mg/dL (70-99) 171 mg/dL (70-99) 261 mg/dL (70-99) 194 mg/dL (70-99) Test 06/08/19 04:45 06/08/19 07:49 06/08/19 11:51 06/08/19 15:47 White Blood Count 9.7 x10^3/uL (4.0-11.0) Red Blood Count 3.75 x10^6/uL (3.50-5.40) Hemoglobin 11.7 g/dL (12.0-15.5) Hematocrit 34.5 % (36.0-47.0) Mean Corpuscular Volume 92 fL (79-100) Mean Corpuscular Hemoglobin 31 pg (25-35) Mean Corpuscular Hemoglobin Concent 34 g/dL (31-37) Red Cell Distribution Width 14.0 % (11.5-14.5) Platelet Count 157 x10^3/uL (140-400) Neutrophils (%) (Auto) 85 % (31-73) Lymphocytes (%) (Auto) 7 % (24-48) Monocytes (%) (Auto) 7 % (0-9) Eosinophils (%) (Auto) 0 % (0-3) Basophils (%) (Auto) 0 % (0-3) Neutrophils # (Auto) 8.3 x10^3/uL (1.8-7.7) Lymphocytes # (Auto) 0.7 x10^3/uL (1.0-4.8) Monocytes # (Auto) 0.7 x10^3/uL (0.0-1.1) Eosinophils # (Auto) 0.0 x10^3/uL (0.0-0.7) Basophils # (Auto) 0.0 x10^3/uL (0.0-0.2) Sodium Level 137 mmol/L (136-145) Potassium Level 3.8 mmol/L (3.5-5.1) Chloride Level 104 mmol/L (98-107) Carbon Dioxide Level 14 mmol/L (21-32) Anion Gap 19 (6-14) Blood Urea Nitrogen 8 mg/dL (7-20) Creatinine 0.7 mg/dL (0.6-1.0) Estimated GFR (Cockcroft-Gault) 105.1 Glucose Level 272 mg/dL (70-99) Calcium Level 8.0 mg/dL (8.5-10.1) Magnesium Level 2.1 mg/dL (1.8-2.4) Amylase Level 46 U/L (25-115) Lipase 177 U/L (73-393) Glucose (Fingerstick) 237 mg/dL (70-99) 237 mg/dL (70-99) 177 mg/dL (70-99) Test 06/08/19 17:28 06/08/19 21:09 06/09/19 04:10 06/09/19 07:03 Glucose (Fingerstick) 192 mg/dL (70-99) 178 mg/dL (70-99) 222 mg/dL (70-99) White Blood Count 8.1 x10^3/uL (4.0-11.0) Red Blood Count 3.87 x10^6/uL (3.50-5.40) Hemoglobin 12.2 g/dL (12.0-15.5) Hematocrit 35.6 % (36.0-47.0) Mean Corpuscular Volume 92 fL (79-100) Mean Corpuscular Hemoglobin 31 pg (25-35) Mean Corpuscular Hemoglobin Concent 34 g/dL (31-37) Red Cell Distribution Width 14.0 % (11.5-14.5) Platelet Count 154 x10^3/uL (140-400) Neutrophils (%) (Auto) 83 % (31-73) Lymphocytes (%) (Auto) 9 % (24-48) Monocytes (%) (Auto) 8 % (0-9) Eosinophils (%) (Auto) 0 % (0-3) Basophils (%) (Auto) 0 % (0-3) Neutrophils # (Auto) 6.7 x10^3/uL (1.8-7.7) Lymphocytes # (Auto) 0.7 x10^3/uL (1.0-4.8) Monocytes # (Auto) 0.6 x10^3/uL (0.0-1.1) Eosinophils # (Auto) 0.0 x10^3/uL (0.0-0.7) Basophils # (Auto) 0.0 x10^3/uL (0.0-0.2) Sodium Level 136 mmol/L (136-145) Potassium Level 3.2 mmol/L (3.5-5.1) Chloride Level 101 mmol/L (98-107) Carbon Dioxide Level 18 mmol/L (21-32) Anion Gap 17 (6-14) Blood Urea Nitrogen 6 mg/dL (7-20) Creatinine 0.6 mg/dL (0.6-1.0) Estimated GFR (Cockcroft-Gault) 125.6 BUN/Creatinine Ratio 10 (6-20) Glucose Level 223 mg/dL (70-99) Lactic Acid Level 0.5 mmol/L (0.4-2.0) Calcium Level 8.2 mg/dL (8.5-10.1) Total Bilirubin 0.5 mg/dL (0.2-1.0) Aspartate Amino Transf (AST/SGOT) 21 U/L (15-37) Alanine Aminotransferase (ALT/SGPT) 14 U/L (14-59) Alkaline Phosphatase 50 U/L (46-116) Total Protein 6.2 g/dL (6.4-8.2) Albumin 2.8 g/dL (3.4-5.0) Albumin/Globulin Ratio 0.8 (1.0-1.7) Laboratory Tests Test 06/08/19 11:51 06/08/19 15:47 06/08/19 17:28 06/08/19 21:09 Glucose (Fingerstick) 237 mg/dL (70-99) 177 mg/dL (70-99) 192 mg/dL (70-99) 178 mg/dL (70-99) Test 06/09/19 04:10 06/09/19 07:03 White Blood Count 8.1 x10^3/uL (4.0-11.0) Red Blood Count 3.87 x10^6/uL (3.50-5.40) Hemoglobin 12.2 g/dL (12.0-15.5) Hematocrit 35.6 % (36.0-47.0) Mean Corpuscular Volume 92 fL (79-100) Mean Corpuscular Hemoglobin 31 pg (25-35) Mean Corpuscular Hemoglobin Concent 34 g/dL (31-37) Red Cell Distribution Width 14.0 % (11.5-14.5) Platelet Count 154 x10^3/uL (140-400) Neutrophils (%) (Auto) 83 % (31-73) Lymphocytes (%) (Auto) 9 % (24-48) Monocytes (%) (Auto) 8 % (0-9) Eosinophils (%) (Auto) 0 % (0-3) Basophils (%) (Auto) 0 % (0-3) Neutrophils # (Auto) 6.7 x10^3/uL (1.8-7.7) Lymphocytes # (Auto) 0.7 x10^3/uL (1.0-4.8) Monocytes # (Auto) 0.6 x10^3/uL (0.0-1.1) Eosinophils # (Auto) 0.0 x10^3/uL (0.0-0.7) Basophils # (Auto) 0.0 x10^3/uL (0.0-0.2) Sodium Level 136 mmol/L (136-145) Potassium Level 3.2 mmol/L (3.5-5.1) Chloride Level 101 mmol/L (98-107) Carbon Dioxide Level 18 mmol/L (21-32) Anion Gap 17 (6-14) Blood Urea Nitrogen 6 mg/dL (7-20) Creatinine 0.6 mg/dL (0.6-1.0) Estimated GFR (Cockcroft-Gault) 125.6 BUN/Creatinine Ratio 10 (6-20) Glucose Level 223 mg/dL (70-99) Lactic Acid Level 0.5 mmol/L (0.4-2.0) Calcium Level 8.2 mg/dL (8.5-10.1) Total Bilirubin 0.5 mg/dL (0.2-1.0) Aspartate Amino Transf (AST/SGOT) 21 U/L (15-37) Alanine Aminotransferase (ALT/SGPT) 14 U/L (14-59) Alkaline Phosphatase 50 U/L (46-116) Total Protein 6.2 g/dL (6.4-8.2) Albumin 2.8 g/dL (3.4-5.0) Albumin/Globulin Ratio 0.8 (1.0-1.7) Glucose (Fingerstick) 222 mg/dL (70-99) Microbiology 06/06/19 Blood Culture - Preliminary, Resulted NO GROWTH AFTER 2 DAYS Medications Current Medications Ondansetron HCl (Zofran) 4 mg 1X ONCE IV Last administered on 06/06/19at 14:45; Start 06/06/19 at 14:30; Stop 06/06/19 at 14:31; Status DC Sodium Chloride 1,000 ml @ 1,000 mls/hr 1X ONCE IV Last administered on 06/06/19at 14:45; Start 06/06/19 at 14:30; Stop 06/06/19 at 15:29; Status DC Sodium Chloride 1,000 ml @ 1,000 mls/hr 1X ONCE IV Last administered on 06/06/19at 14:46; Start 06/06/19 at 14:30; Stop 06/06/19 at 15:29; Status DC Insulin Human Regular 150 ml @ 0 mls/hr 1X ONCE IV Last administered on 06/06/19at 14:49; Start 06/06/19 at 14:30; Stop 06/06/19 at 14:31; Status DC Insulin Human Regular (HumuLIN R VIAL) 10 unit 1X ONCE IV Last administered on 06/06/19at 14:47; Start 06/06/19 at 14:30; Stop 06/06/19 at 14:31; Status DC Sodium Bicarbonate (Sodium Bicarb Adult 8.4% Syr) 50 meq 1X ONCE IV Last administered on 06/06/19at 15:56; Start 06/06/19 at 15:00; Stop 06/06/19 at 15:01; Status DC Sodium Chloride 1,000 ml @ 1,000 mls/hr 1X ONCE IV Last administered on 06/06/19at 16:36; Start 06/06/19 at 15:00; Stop 06/06/19 at 15:59; Status DC Fentanyl Citrate (Fentanyl 2ml Vial) 50 mcg 1X ONCE IVP Last administered on 06/06/19at 15:57; Start 06/06/19 at 15:30; Stop 06/06/19 at 15:31; Status DC Sodium Chloride 1,000 ml @ 70 mls/hr [id number] IV Last administered on 06/06/19at 16:39; Start 06/06/19 at 16:00; Stop 06/07/19 at 08:21; Status DC Sodium Bicarbonate 100 meq/Sodium Chloride 1,100 ml @ 80 mls/hr [id number] IV Last administered on 06/07/19at 06:16; Start 06/06/19 at 16:00; Stop 06/07/19 at 08:21; Status DC Piperacillin Sod/ Tazobactam Sod 3.375 gm/Sodium Chloride 50 ml @ 100 mls/hr Q6HRS IV Last administered on 06/08/19at 12:07; Start 06/06/19 at 16:00; Stop 06/08/19 at 16:54; Status DC Acetaminophen (Tylenol) 650 mg Q6HRS PRN PO MILD PAIN / TEMP Last administered on 06/07/19at 08:49; Start 06/06/19 at 15:45 Ondansetron HCl (Zofran) 4 mg PRN Q6HRS PRN IVP NAUSEA/VOMITING Last administered on 06/07/19at 20:55; Start 06/06/19 at 15:45 Influenza Virus Vaccine Quadrival (Afluria Quad 2019-20 (3yr Up) Syringe) 0.5 ml ONCE ONCE VAX IM ; Start 06/06/19 at 17:30; Stop 06/06/19 at 17:31; Status DC Dextrose/Sodium Chloride 1,000 ml @ 250 mls/hr Q4H IV Last administered on 06/07/19at 03:32; Start 06/06/19 at 19:00; Stop 06/07/19 at 08:21; Status DC Potassium Chloride/Water 100 ml @ 100 mls/hr Q1H IV Last administered on 06/07/19at 02:16; Start 06/06/19 at 22:00; Stop 06/07/19 at 01:59; Status DC Sodium Phosphate 20 mmol/Dextrose 256.6667 ml @ 62.5 mls/hr 1X PRN PRN IV SEE COMMENTS Last administered on 06/06/19at 22:40; Start 06/06/19 at 21:15 Insulin Human Regular 150 unit/ Sodium Chloride 151.5 ml @ 0 mls/hr CONT PRN IV SEE I/O RECORD Last administered on 06/07/19at 04:46; Start 06/07/19 at 00:30; Stop 06/07/19 at 10:47; Status DC Insulin Glargine (Lantus Syringe) 30 unit 1X SQ ; Start 06/07/19 at 08:30; Stop 06/07/19 at 10:55; Status DC Insulin Human Lispro (HumaLOG) 10 units TIDWMEALS SQ ; Start 06/07/19 at 08:30; Stop 06/07/19 at 10:47; Status DC Potassium Chloride (Klor-Con) 40 meq 1X ONCE PO Last administered on 06/07/19at 08:50; Start 06/07/19 at 08:30; Stop 06/07/19 at 08:31; Status DC Potassium Chloride (Klor-Con) 40 meq 1X ONCE PO Last administered on 06/07/19at 12:00; Start 06/07/19 at 12:00; Stop 06/07/19 at 12:01; Status DC Magnesium Sulfate 50 ml @ 25 mls/hr 1X ONCE IV Last administered on 06/07/19at 08:49; Start 06/07/19 at 08:30; Stop 06/07/19 at 10:29; Status DC Sodium Chloride 1,000 ml @ 60 mls/hr [id number] IV Last administered on 06/08/19at 20:22; Start 06/07/19 at 09:00 Insulin Human Lispro (HumaLOG) 4 units TIDWMEALS SQ Last administered on 06/08/19 09:11; Start 06/07/19 at 12:00; Stop 06/08/19 at 10:54; Status DC Atorvastatin Calcium (Lipitor) 10 mg QHS PO Last administered on 06/07/19at 20:52; Start 06/07/19 at 21:00 Insulin Glargine (Lantus Syringe) 15 unit QHS SQ ; Start 06/08/19 at 21:00; Stop 06/08/19 at 10:54; Status DC Insulin Glargine (Lantus Syringe) 30 unit 1X ONCE SQ ; Start 06/07/19 at 11:00; Stop 06/07/19 at 11:01; Status DC Prochlorperazine Edisylate (Compazine) 5 mg PRN Q6HRS PRN IV NAUSEA/VOMITING 2ND CHOICE Last administered on 06/08/19at 20:17; Start 06/07/19 at 23:15 Metoclopramide HCl (Reglan Vial) 10 mg PRN Q6HRS PRN IVP NAUSEA/VOMITING 3RD CHOICE; Start 06/07/19 at 23:15; Stop 06/08/19 at 10:54; Status DC Insulin Glargine (Lantus Syringe) 20 unit QHS SQ Last administered on 06/08/19at 21:30; Start 06/08/19 at 21:00 Insulin Human Lispro (HumaLOG) 6 units TIDWMEALS SQ Last administered on 06/09/19at 08:26; Start 06/08/19 at 12:00 Metoclopramide HCl (Reglan) 10 mg QIDACHS PO Last administered on 06/09/19 08:21; Start 06/08/19 at 11:30 Ondansetron HCl (Zofran Odt) 4 mg TIDAC PO Last administered on 06/09/19 08:21; Start 06/08/19 at 11:30 Sodium Bicarbonate (Sodium Bicarbonate) 1,300 mg BID PO Last administered on 06/09/19 08:21; Start 06/08/19 at 11:30 Lactobacillus Rhamnosus (Culturelle) 1 cap BID PO Last administered on 06/09/19 08:21; Start 06/08/19 at 21:00 Active Scripts Active Reported Metformin Hcl 500 Mg Tablet 500 Mg PO BIDWMEALS Vitals/I & O Vital Sign - Last 24 Hours 06/08/19 06/08/19 06/08/19 06/08/19 11:46 15:59 19:00 23:00 Temp 98.0 99.5 98.3 98.9 98.0 99.5 98.3 98.9 Pulse 89 86 76 87 Resp 20 20 18 18 B/P (MAP) 138/90 (106) 121/76 (91) 138/86 (103) 121/70 (87) Pulse Ox 97 98 97 98 O2 Delivery Room Air Room Air Room Air Room Air 06/09/19 06/09/19 03:08 07:21 Temp 97.7 98.5 97.7 98.5 Pulse 80 80 Resp 18 18 B/P (MAP) 132/84 (100) 132/84 (100) Pulse Ox 98 97 O2 Delivery Room Air Room Air ELKE RAYO MD Jun 09, 2019 10:38
[2019-06-09] MEDS ORDERED: POTASSIUM CHLORIDE 20 MEQ TABLET.ER. PO ONE ×2 (11:00→16:00)
[2019-06-09 11:59] VITALS: BP 138/78
[2019-06-09] MEDS: PANTOPRAZOLE 40 MG TABLET.DR. PO SCH (12:01)
[2019-06-09] MEDS: IV NORMAL SALINE 1000ML BAG 1,000 ML IV SCH (12:49)
--- NOTE | 2019-06-09 13:48 | PDOC ---
Infectious Disease Note Subjective Subjective Still has some N/V though not as bad as yesterday Eating Denies F/C/S/SOA Vital Sign Vital Signs Vital Signs Date Time Temp Pulse Resp B/P (MAP) Pulse Ox O2 Delivery O2 Flow Rate FiO2 06/09/19 11:59 98.2 76 18 138/78 (98) 99 Room Air 98.2 Physical Exam PHYSICAL EXAM GENERAL: Propped up in bed, alert, eating HEENT: Oral cavity moist. NECK: Supple, no JVD. LUNGS: Clear bilaterally. No wheezing. HEART: S1, S2. No gallops or rubs. ABDOMEN: Soft, nontender EXTREMITIES: No edema, no cyanosis, no clubbing. SKIN: Warm, dry. No generalized rash. PIV Labs Lab Laboratory Tests Test 06/08/19 15:47 06/08/19 17:28 06/08/19 21:09 06/09/19 04:10 Glucose (Fingerstick) 177 mg/dL (70-99) 192 mg/dL (70-99) 178 mg/dL (70-99) White Blood Count 8.1 x10^3/uL (4.0-11.0) Red Blood Count 3.87 x10^6/uL (3.50-5.40) Hemoglobin 12.2 g/dL (12.0-15.5) Hematocrit 35.6 % (36.0-47.0) Mean Corpuscular Volume 92 fL (79-100) Mean Corpuscular Hemoglobin 31 pg (25-35) Mean Corpuscular Hemoglobin Concent 34 g/dL (31-37) Red Cell Distribution Width 14.0 % (11.5-14.5) Platelet Count 154 x10^3/uL (140-400) Neutrophils (%) (Auto) 83 % (31-73) Lymphocytes (%) (Auto) 9 % (24-48) Monocytes (%) (Auto) 8 % (0-9) Eosinophils (%) (Auto) 0 % (0-3) Basophils (%) (Auto) 0 % (0-3) Neutrophils # (Auto) 6.7 x10^3/uL (1.8-7.7) Lymphocytes # (Auto) 0.7 x10^3/uL (1.0-4.8) Monocytes # (Auto) 0.6 x10^3/uL (0.0-1.1) Eosinophils # (Auto) 0.0 x10^3/uL (0.0-0.7) Basophils # (Auto) 0.0 x10^3/uL (0.0-0.2) Sodium Level 136 mmol/L (136-145) Potassium Level 3.2 mmol/L (3.5-5.1) Chloride Level 101 mmol/L (98-107) Carbon Dioxide Level 18 mmol/L (21-32) Anion Gap 17 (6-14) Blood Urea Nitrogen 6 mg/dL (7-20) Creatinine 0.6 mg/dL (0.6-1.0) Estimated GFR (Cockcroft-Gault) 125.6 BUN/Creatinine Ratio 10 (6-20) Glucose Level 223 mg/dL (70-99) Lactic Acid Level 0.5 mmol/L (0.4-2.0) Calcium Level 8.2 mg/dL (8.5-10.1) Total Bilirubin 0.5 mg/dL (0.2-1.0) Aspartate Amino Transf (AST/SGOT) 21 U/L (15-37) Alanine Aminotransferase (ALT/SGPT) 14 U/L (14-59) Alkaline Phosphatase 50 U/L (46-116) Total Protein 6.2 g/dL (6.4-8.2) Albumin 2.8 g/dL (3.4-5.0) Albumin/Globulin Ratio 0.8 (1.0-1.7) Test 06/09/19 07:03 06/09/19 11:53 Glucose (Fingerstick) 222 mg/dL (70-99) 137 mg/dL (70-99) Micro Microbiology 06/06/19 Blood Culture - Preliminary, Resulted NO GROWTH AFTER 2 DAY Objective Assessment Leukocytosis, likely reactive, improved Diabetic ketoacidosis. Acute kidney injury - better Hyponatremia - corrected Newly diagnosed diabetes. A1C 14.1 Electrolyte imbalance. High amylase and lipase. N/V some better Plan Plan of Care Off abx BC neg so far WBC improved Zofran per primary D/w family at bedside Attending Co-Sign Attending Co-Sign The patient was seen and interviewed as well as examined at the bedside. The chart was reviewed. The case was discussed. Agree with the plan of care. RELL OCHOA [employer] PHARM[employer] Jun 09, 2019 13:48 ZHANE STEVENS MD Jun 09, 2019 17:25
--- NOTE | 2019-06-09 13:52 | PDOC2 ---
CONSULT Date of Consult Date of Consult DATE: 06/09/19 TIME: 13:49 Reason for Consult Reason for Consult: N/v Current Problem List Problem List Problems Medical Problems: (1) Diabetic ketoacidosis Status: Acute (2) Elevated lipase Status: Acute (3) Leukocytosis Status: Acute (4) Low back pain Status: Acute (5) Metabolic acidosis due to diabetes mellitus Status: Acute (6) Nausea and vomiting Status: Acute (7) Renal insufficiency Status: Acute Current Medications Current Medications Current Medications Ondansetron HCl (Zofran) 4 mg 1X ONCE IV Last administered on 06/06/19 14:45; Start 06/06/19 at 14:30; Stop 06/06/19 at 14:31; Status DC Sodium Chloride 1,000 ml @ 1,000 mls/hr 1X ONCE IV Last administered on 06/06/19at 14:45; Start 06/06/19 at 14:30; Stop 06/06/19 at 15:29; Status DC Sodium Chloride 1,000 ml @ 1,000 mls/hr 1X ONCE IV Last administered on 06/06/19at 14:46; Start 06/06/19 at 14:30; Stop 06/06/19 at 15:29; Status DC Insulin Human Regular 150 ml @ 0 mls/hr 1X ONCE IV Last administered on at 14:49; Start 06/06/19 at 14:30; Stop 06/06/19 at 14:31; Status DC Insulin Human Regular (HumuLIN R VIAL) 10 unit 1X ONCE IV Last administered on 06/06/19 14:47; Start 06/06/19 at 14:30; Stop 06/06/19 at 14:31; Status DC Sodium Bicarbonate (Sodium Bicarb Adult 8.4% Syr) 50 meq 1X ONCE IV Last administered on 06/06/19at 15:56; Start 06/06/19 at 15:00; Stop 06/06/19 at 15:0 1; Status DC Sodium Chloride 1,000 ml @ 1,000 mls/hr 1X ONCE IV Last administered on 06/06/19at 16:36; Start 06/06/19 at 15:00; Stop 06/06/19 at 15:59; Status DC Fentanyl Citrate (Fentanyl 2ml Vial) 50 mcg 1X ONCE IVP Last administered on 12/5/19at 15:57; Start 06/06/19 at 15:30; Stop 06/06/19 at 15:31; Status DC Sodium Chloride 1,000 ml @ 70 mls/hr [id number] IV Last administered on 06/06/19at 16:39; Start 06/06/19 at 16:00; Stop 06/07/19 at 08:21; Status DC Sodium Bicarbonate 100 meq/Sodium Chloride 1,100 ml @ 80 mls/hr [id number] IV Last administered on 06/07/19at 06:16; Start 06/06/19 at 16:00; Stop 06/07/19 at 08:21; Status DC Piperacillin Sod/ Tazobactam Sod 3.375 gm/Sodium Chloride 50 ml @ 100 mls/hr Q6HRS IV Last administered on 06/08/19at 12:07; Start 06/06/19 at 16:00; Stop 06/08/19 at 16:54; Status DC Acetaminophen (Tylenol) 650 mg Q6HRS PRN PO MILD PAIN / TEMP Last administered on 06/07/19at 08:49; Start 06/06/19 at 15:45 Ondansetron HCl (Zofran) 4 mg PRN Q6HRS PRN IVP NAUSEA/VOMITING Last administered on 06/07/19at 20:55; Start 06/06/19 at 15:45 Influenza Virus Vaccine Quadrival (Afluria Quad 2019-20 (3yr Up) Syringe) 0.5 ml ONCE ONCE VAX IM ; Start 06/06/19 at 17:30; Stop 06/06/19 at 17:31; Status DC Dextrose/Sodium Chloride 1,000 ml @ 250 mls/hr Q4H IV Last administered on 06/07/19at 03:32; Start 06/06/19 at 19:00; Stop 06/07/19 at 08:21; Status DC Potassium Chloride/Water 100 ml @ 100 mls/hr Q1H IV Last administered on 06/07/19at 02:16; Start 06/06/19 at 22:00; Stop 06/07/19 at 01:59; Status DC Sodium Phosphate 20 mmol/Dextrose 256.6667 ml @ 62.5 mls/hr 1X PRN PRN IV SEE COMMENTS Last administered on 06/06/19at 22:40; Start 06/06/19 at 21:15 Insulin Human Regular 150 unit/ Sodium Chloride 151.5 ml @ 0 mls/hr CONT PRN IV SEE I/O RECORD Last administered on 06/07/19at 04:46; Start 06/07/19 at 00:30; Stop 06/07/19 at 10:47; Status DC Insulin Glargine (Lantus Syringe) 30 unit 1X SQ ; Start 06/07/19 at 08:30; Stop 06/07/19 at 10:55; Status DC Insulin Human Lispro (HumaLOG) 10 units TIDWMEALS SQ ; Start 06/07/19 at 08:30; Stop 06/07/19 at 10:47; Status DC Potassium Chloride (Klor-Con) 40 meq 1X ONCE PO Last administered on 06/07/19at 08:50; Start 06/07/19 at 08:30; Stop 06/07/19 at 08:31; Status DC Potassium Chloride (Klor-Con) 40 meq 1X ONCE PO Last administered on 06/07/19at 12:00; Start 06/07/19 at 12:00; Stop 06/07/19 at 12:01; Status DC Magnesium Sulfate 50 ml @ 25 mls/hr 1X ONCE IV Last administered on 06/07/19at 08:49; Start 06/07/19 at 08:30; Stop 06/07/19 at 10:29; Status DC Sodium Chloride 1,000 ml @ 60 mls/hr [id number] IV Last administered on 06/08/19at 20:22; Start 06/07/19 at 09:00; Stop 06/09/19 at 10:38; Status DC Insulin Human Lispro (HumaLOG) 4 units TIDWMEALS SQ Last administered on 06/08/19at 09:11; Start 06/07/19 at 12:00; Stop 06/08/19 at 10:54; Status DC Atorvastatin Calcium (Lipitor) 10 mg QHS PO Last administered on 06/07/19at 20:52; Start 06/07/19 at 21:00 Insulin Glargine (Lantus Syringe) 15 unit QHS SQ ; Start 06/08/19 at 21:00; Stop 06/08/19 at 10:54; Status DC Insulin Glargine (Lantus Syringe) 30 unit 1X ONCE SQ ; Start 06/07/19 at 11:00; Stop 06/07/19 at 11:01; Status DC Prochlorperazine Edisylate (Compazine) 5 mg PRN Q6HRS PRN IV NAUSEA/VOMITING 2ND CHOICE Last administered on 06/08/19at 20:17; Start 06/07/19 at 23:15 Metoclopramide HCl (Reglan Vial) 10 mg PRN Q6HRS PRN IVP NAUSEA/VOMITING 3RD CHOICE; Start 06/07/19 at 23:15; Stop 06/08/19 at 10:54; Status DC Insulin Glargine (Lantus Syringe) 20 unit QHS SQ Last administered on 06/08/19at 21:30; Start 06/08/19 at 21:00; Stop 06/09/19 at 10:38; Status DC Insulin Human Lispro (HumaLOG) 6 units TIDWMEALS SQ Last administered on 06/09/19 08:26; Start 06/08/19 at 12:00; Stop 06/09/19 at 10:38; Status DC Metoclopramide HCl (Reglan) 10 mg QIDACHS PO Last administered on 06/09/19 12:01; Start 06/08/19 at 11:30 Ondansetron HCl (Zofran Odt) 4 mg TIDAC PO Last administered on 06/09/19at 12:01; Start 06/08/19 at 11:30 Sodium Bicarbonate (Sodium Bicarbonate) 1,300 mg BID PO Last administered on 06/09/19 08:21; Start 06/08/19 at 11:30 Lactobacillus Rhamnosus (Culturelle) 1 cap BID PO Last administered on 06/09/19at 08:21; Start 06/08/19 at 21:00 Insulin Glargine (Lantus Syringe) 24 unit QHS SQ ; Start 06/09/19 at 21:00 Insulin Human Lispro (HumaLOG) 8 units TIDWMEALS SQ Last administered on 06/09/19at 12:11; Start 06/09/19 at 12:00 Potassium Chloride (Klor-Con) 40 meq 1X ONCE PO Last administered on 06/09/19at 12:01; Start 06/09/19 at 11:00; Stop 06/09/19 at 11:01; Status DC Pantoprazole Sodium (Protonix) 40 mg DAILYAC PO ; Start 06/10/19 at 12:00; Stop 06/09/19 at 10:40; Status DC Al Hydroxide/Mg Hydroxide (Mylanta Plus Xs) 30 ml PRN Q2HR PRN PO HEARTBURN / GAS; Start 06/09/19 at 10:30 Sodium Chloride 1,000 ml @ 60 mls/hr [id number] IV Last administered on 06/09/19at 12:49; Start 06/09/19 at 10:30 Potassium Chloride (Klor-Con) 20 meq 1X ONCE PO ; Start 06/09/19 at 16:00; Stop 06/09/19 at 16:01 Pantoprazole Sodium (Protonix) 40 mg DAILYAC PO Last administered on 06/09/19at 12:01; Start 06/09/19 at 12:00 Active Scripts Active Reported Metformin Hcl 500 Mg Tablet 500 Mg PO BIDWMEALS Allergies Allergies: Coded Allergies: No Known Drug Allergies (Unverified , 06/06/19) Vitals VITALS Vital Signs Date Time Temp Pulse Resp B/P (MAP) Pulse Ox O2 Delivery O2 Flow Rate FiO2 06/09/19 11:59 98.2 76 18 138/78 (98) 99 Room Air 98.2 Labs Labs Laboratory Tests Test 06/07/19 16:42 06/07/19 20:33 06/08/19 04:45 06/08/19 07:49 Glucose (Fingerstick) 261 mg/dL (70-99) 194 mg/dL (70-99) 237 mg/dL (70-99) White Blood Count 9.7 x10^3/uL (4.0-11.0) Red Blood Count 3.75 x10^6/uL (3.50-5.40) Hemoglobin 11.7 g/dL (12.0-15.5) Hematocrit 34.5 % (36.0-47.0) Mean Corpuscular Volume 92 fL (79-100) Mean Corpuscular Hemoglobin 31 pg (25-35) Mean Corpuscular Hemoglobin Concent 34 g/dL (31-37) Red Cell Distribution Width 14.0 % (11.5-14.5) Platelet Count 157 x10^3/uL (140-400) Neutrophils (%) (Auto) 85 % (31-73) Lymphocytes (%) (Auto) 7 % (24-48) Monocytes (%) (Auto) 7 % (0-9) Eosinophils (%) (Auto) 0 % (0-3) Basophils (%) (Auto) 0 % (0-3) Neutrophils # (Auto) 8.3 x10^3/uL (1.8-7.7) Lymphocytes # (Auto) 0.7 x10^3/uL (1.0-4.8) Monocytes # (Auto) 0.7 x10^3/uL (0.0-1.1) Eosinophils # (Auto) 0.0 x10^3/uL (0.0-0.7) Basophils # (Auto) 0.0 x10^3/uL (0.0-0.2) Sodium Level 137 mmol/L (136-145) Potassium Level 3.8 mmol/L (3.5-5.1) Chloride Level 104 mmol/L (98-107) Carbon Dioxide Level 14 mmol/L (21-32) Anion Gap 19 (6-14) Blood Urea Nitrogen 8 mg/dL (7-20) Creatinine 0.7 mg/dL (0.6-1.0) Estimated GFR (Cockcroft-Gault) 105.1 Glucose Level 272 mg/dL (70-99) Calcium Level 8.0 mg/dL (8.5-10.1) Magnesium Level 2.1 mg/dL (1.8-2.4) Amylase Level 46 U/L (25-115) Lipase 177 U/L (73-393) Test 06/08/19 11:51 06/08/19 15:47 06/08/19 17:28 06/08/19 21:09 Glucose (Fingerstick) 237 mg/dL (70-99) 177 mg/dL (70-99) 192 mg/dL (70-99) 178 mg/dL (70-99) Test 06/09/19 04:10 06/09/19 07:03 06/09/19 11:53 White Blood Count 8.1 x10^3/uL (4.0-11.0) Red Blood Count 3.87 x10^6/uL (3.50-5.40) Hemoglobin 12.2 g/dL (12.0-15.5) Hematocrit 35.6 % (36.0-47.0) Mean Corpuscular Volume 92 fL (79-100) Mean Corpuscular Hemoglobin 31 pg (25-35) Mean Corpuscular Hemoglobin Concent 34 g/dL (31-37) Red Cell Distribution Width 14.0 % (11.5-14.5) Platelet Count 154 x10^3/uL (140-400) Neutrophils (%) (Auto) 83 % (31-73) Lymphocytes (%) (Auto) 9 % (24-48) Monocytes (%) (Auto) 8 % (0-9) Eosinophils (%) (Auto) 0 % (0-3) Basophils (%) (Auto) 0 % (0-3) Neutrophils # (Auto) 6.7 x10^3/uL (1.8-7.7) Lymphocytes # (Auto) 0.7 x10^3/uL (1.0-4.8) Monocytes # (Auto) 0.6 x10^3/uL (0.0-1.1) Eosinophils # (Auto) 0.0 x10^3/uL (0.0-0.7) Basophils # (Auto) 0.0 x10^3/uL (0.0-0.2) Sodium Level 136 mmol/L (136-145) Potassium Level 3.2 mmol/L (3.5-5.1) Chloride Level 101 mmol/L (98-107) Carbon Dioxide Level 18 mmol/L (21-32) Anion Gap 17 (6-14) Blood Urea Nitrogen 6 mg/dL (7-20) Creatinine 0.6 mg/dL (0.6-1.0) Estimated GFR (Cockcroft-Gault) 125.6 BUN/Creatinine Ratio 10 (6-20) Glucose Level 223 mg/dL (70-99) Lactic Acid Level 0.5 mmol/L (0.4-2.0) Calcium Level 8.2 mg/dL (8.5-10.1) Total Bilirubin 0.5 mg/dL (0.2-1.0) Aspartate Amino Transf (AST/SGOT) 21 U/L (15-37) Alanine Aminotransferase (ALT/SGPT) 14 U/L (14-59) Alkaline Phosphatase 50 U/L (46-116) Total Protein 6.2 g/dL (6.4-8.2) Albumin 2.8 g/dL (3.4-5.0) Albumin/Globulin Ratio 0.8 (1.0-1.7) Glucose (Fingerstick) 222 mg/dL (70-99) 137 mg/dL (70-99) Laboratory Tests Test 06/08/19 15:47 06/08/19 17:28 06/08/19 21:09 06/09/19 04:10 Glucose (Fingerstick) 177 mg/dL (70-99) 192 mg/dL (70-99) 178 mg/dL (70-99) White Blood Count 8.1 x10^3/uL (4.0-11.0) Red Blood Count 3.87 x10^6/uL (3.50-5.40) Hemoglobin 12.2 g/dL (12.0-15.5) Hematocrit 35.6 % (36.0-47.0) Mean Corpuscular Volume 92 fL (79-100) Mean Corpuscular Hemoglobin 31 pg (25-35) Mean Corpuscular Hemoglobin Concent 34 g/dL (31-37) Red Cell Distribution Width 14.0 % (11.5-14.5) Platelet Count 154 x10^3/uL (140-400) Neutrophils (%) (Auto) 83 % (31-73) Lymphocytes (%) (Auto) 9 % (24-48) Monocytes (%) (Auto) 8 % (0-9) Eosinophils (%) (Auto) 0 % (0-3) Basophils (%) (Auto) 0 % (0-3) Neutrophils # (Auto) 6.7 x10^3/uL (1.8-7.7) Lymphocytes # (Auto) 0.7 x10^3/uL (1.0-4.8) Monocytes # (Auto) 0.6 x10^3/uL (0.0-1.1) Eosinophils # (Auto) 0.0 x10^3/uL (0.0-0.7) Basophils # (Auto) 0.0 x10^3/uL (0.0-0.2) Sodium Level 136 mmol/L (136-145) Potassium Level 3.2 mmol/L (3.5-5.1) Chloride Level 101 mmol/L (98-107) Carbon Dioxide Level 18 mmol/L (21-32) Anion Gap 17 (6-14) Blood Urea Nitrogen 6 mg/dL (7-20) Creatinine 0.6 mg/dL (0.6-1.0) Estimated GFR (Cockcroft-Gault) 125.6 BUN/Creatinine Ratio 10 (6-20) Glucose Level 223 mg/dL (70-99) Lactic Acid Level 0.5 mmol/L (0.4-2.0) Calcium Level 8.2 mg/dL (8.5-10.1) Total Bilirubin 0.5 mg/dL (0.2-1.0) Aspartate Amino Transf (AST/SGOT) 21 U/L (15-37) Alanine Aminotransferase (ALT/SGPT) 14 U/L (14-59) Alkaline Phosphatase 50 U/L (46-116) Total Protein 6.2 g/dL (6.4-8.2) Albumin 2.8 g/dL (3.4-5.0) Albumin/Globulin Ratio 0.8 (1.0-1.7) Test 06/09/19 07:03 06/09/19 11:53 Glucose (Fingerstick) 222 mg/dL (70-99) 137 mg/dL (70-99) Assessment/Plan Assessment/Plan N/V- with new onset DM, most likely secondary to gastroparesis. PUD, malignancy, and/or achalasia less likely. Plan improved glycemic control PPI therapy and prokinetic therapy chcf erythromycin preferred over reglan EGD if symptoms persist/worsen Full note dictated SRINIVAS OWEN MD Jun 09, 2019 13:52
[2019-06-09 15:59] VITALS: BP 134/75
[2019-06-09 19:00] VITALS: BP 145/70
[2019-06-09] MEDS ORDERED: INSULIN GLARGINE SYRINGE. SQ SCH (21:00)
[2019-06-09] MEDS: ATORVASTATIN CALCIUM 10 MG TABLET. PO SCH (22:01)
--- NOTE | 2019-06-09 22:15 | NUR ---
MED ADMINISTRATION NOTE: Patient requested 5 units of Lantus this evening for FSBS of 120. 5 units given. Will pass along to day RN.
[2019-06-09 23:00] VITALS: BP 102/70
--- NOTE | 2019-06-10 01:43 | CONS ---
DATE OF CONSULTATION: 06/09/2019 REASON FOR CONSULTATION: Nausea and vomiting. HISTORY OF PRESENT ILLNESS: A 53-year-old female with past medical history significant for new onset diabetes mellitus, was admitted to [facility] with weight loss, polydipsia, polyuria, and subsequently found to have elevated sugars. She has been started on medications with improvement in the fasting blood sugars at this time. No history of peptic ulcer disease is noted. Her sugar on admission was 500. There has been no change in bowel habits. No diarrhea, hematochezia or melena. She is otherwise feeling better, but remains somewhat nauseated. PAST MEDICAL HISTORY: History of diabetes. ALLERGIES: None. MEDICATIONS: At the present time include insulin, potassium, pantoprazole, Reglan, atorvastatin, acetaminophen, and Zofran. SOCIAL HISTORY: She is a former drinker and does not smoke. FAMILY HISTORY: Noncontributory for ulcers or gallbladder disease. REVIEW OF SYSTEMS: Per records. PHYSICAL EXAMINATION: VITAL SIGNS: Temperature is 98.2, pulse 76, respirations 18, and blood pressure is 136/78. HEENT: Normocephalic and atraumatic, head. Pupils and extraocular muscles are not tested. Sclerae anicteric. NECK: Supple. LUNGS: Clear. CARDIOVASCULAR: Reveals S1, S2 without S3, S4 or appreciable murmur. ABDOMEN: Reveals a soft abdomen, normoactive bowel sounds without appreciable hepatosplenomegaly. EXTREMITIES: Reveals no cyanosis, clubbing or edema. LABORATORY STUDIES: Hemoglobin on admission 14.9, hematocrit 46.8, white count 22.8, and platelet count 348,000. Sodium 136, potassium 3.2, chloride 101, bicarbonate 18, BUN 6, creatinine 0.6, glucose 223, calcium 8.2, total bilirubin 0.2, albumin 2.8, AST 21, ALT 14, alkaline phosphatase of 50, and total bilirubin 0.5. IMPRESSION AND RECOMMENDATIONS: Nausea and vomiting, most likely secondary to diabetic gastroparesis. Differential does include peptic ulcer disease, achalasia, malignancy or outlet obstruction. Therefore, we will recommend medical therapy to improve glycemia control. Consider upper endoscopy if the nausea and vomiting do not improve with medical therapy. SRINIVAS OWEN MD DR: SANJUANITA/dede JOB#: [id number] / [id number] ELKE Melendrez MD,
[2019-06-10 03:14] VITALS: BP 116/68
[2019-06-10 04:53] LABS: BASO % 1 % (0-3); EOS % 0 % (0-3); HEMATOCRIT 31.2 % (36.0-47.0); HEMOGLOBIN 10.7 g/dL (12.0-15.5); LYMPH # 1.4 x10^3/uL (1.0-4.8); LYMPH % 27 % (24-48); MEAN CORPUSCULAR HEMOGLOBIN 31 pg (25-35); MEAN CORPUSCULAR HGB CONC 34 g/dL (31-37); MEAN CORPUSCULAR VOLUME 92 fL (79-100); MONO # 0.5 x10^3/uL (0.0-1.1); MONO % 9 % (0-9); NEUT # 3.3 x10^3/uL (1.8-7.7); NEUT % 63 % (31-73); PLATELET COUNT 138 x10^3/uL (140-400); RED CELL DISTRIBUTION WIDTH 13.8 % (11.5-14.5); WHITE BLOOD COUNT 5.3 x10^3/uL (4.0-11.0)
[2019-06-10] MEDS: IV NORMAL SALINE 1000ML BAG 1,000 ML IV SCH (05:38)
[2019-06-10 06:16] LABS: CALCIUM 8.1 mg/dL (8.5-10.1); CREATININE 0.6 mg/dL (0.6-1.0); GFR 125.6; MAGNESIUM 2.1 mg/dL (1.8-2.4); POTASSIUM 3.1 mmol/L (3.5-5.1)
[2019-06-10] MEDS: PANTOPRAZOLE 40 MG TABLET.DR. PO SCH (07:30)
[2019-06-10] MEDS: ONDANSETRON ODT 4 MG TAB.RAPDIS. PO SCH ×2 (07:30→12:48)
[2019-06-10] MEDS: METOCLOPRAMIDE 10 MG TABLET. PO SCH ×2 (07:30→12:48)
[2019-06-10 08:00] VITALS: BP 123/69
--- NOTE | 2019-06-10 08:54 | NUR ---
SW following pt. Pt is a transfer from ICU. ID and GI following. SW will be available as needed.
[2019-06-10] MEDS ORDERED: FLU VAX QS 2019-20 (36MOS+)/PF 0.5 ML SYRINGE. VAX IM ONE (09:30)
--- NOTE | 2019-06-10 09:56 | PDOC ---
PROGRESS NOTES Subjective Subjective denies nausea and vomiting. eating well. blood sugars are okay. potassium low 3.1 and will order kcl. Objective Objective Vital Signs Date Time Temp Pulse Resp B/P (MAP) Pulse Ox O2 Delivery O2 Flow Rate FiO2 06/10/19 08:00 98.1 73 16 123/69 (87) 97 Room Air 98.1 Intake and Output 06/10/19 07:00 Intake Total 300 ml Output Total 0 ml Balance 300 ml Intake Oral 300 ml Output Urine Total 0 ml # Voids 3 Physical Exam Abdomen: Soft Heart: Regular rate, Normal S1, Normal S2 Extremities: No edema General: Alert HEENT: Atraumatic Lungs: Clear to auscultation Neuro: Normal speech Psych/Mental Status: Mental status NL Skin: No rashes Assessment Assessment Problems1. Newly diagnosed diabetes mellitus with diabetic ketoacidosis.resolved. hyperglycemia.sodium bicarbonate normal 2. Hyponatremia related to diabetic ketoacidosis. resolved 3. Acute kidney injury, most likely related to acute diabetic ketoacidosis and intravascular volume depletion. resolved 4. Leukocytosis resolved hypomagnesemia resolved hypokalemia severe protein calorie malnutrition hyperlipidemia nausea and vomiting persists. rule out diabetic gastroparesis Medical Problems: (1) Diabetic ketoacidosis Status: Acute (2) Elevated lipase Status: Acute (3) Leukocytosis Status: Acute (4) Low back pain Status: Acute (5) Metabolic acidosis due to diabetes mellitus Status: Acute (6) Nausea and vomiting Status: Acute (7) Renal insufficiency Status: Acute Plan Plan of Care dismiss today on lower dose of insulin Comment Review of Relevant I have reviewed the following items cain (where applicable) has been applied. Labs Laboratory Tests Test 06/08/19 11:51 06/08/19 15:47 06/08/19 17:28 06/08/19 21:09 Glucose (Fingerstick) 237 mg/dL (70-99) 177 mg/dL (70-99) 192 mg/dL (70-99) 178 mg/dL (70-99) Test 06/09/19 04:10 06/09/19 07:03 06/09/19 11:53 06/09/19 16:34 White Blood Count 8.1 x10^3/uL (4.0-11.0) Red Blood Count 3.87 x10^6/uL (3.50-5.40) Hemoglobin 12.2 g/dL (12.0-15.5) Hematocrit 35.6 % (36.0-47.0) Mean Corpuscular Volume 92 fL (79-100) Mean Corpuscular Hemoglobin 31 pg (25-35) Mean Corpuscular Hemoglobin Concent 34 g/dL (31-37) Red Cell Distribution Width 14.0 % (11.5-14.5) Platelet Count 154 x10^3/uL (140-400) Neutrophils (%) (Auto) 83 % (31-73) Lymphocytes (%) (Auto) 9 % (24-48) Monocytes (%) (Auto) 8 % (0-9) Eosinophils (%) (Auto) 0 % (0-3) Basophils (%) (Auto) 0 % (0-3) Neutrophils # (Auto) 6.7 x10^3/uL (1.8-7.7) Lymphocytes # (Auto) 0.7 x10^3/uL (1.0-4.8) Monocytes # (Auto) 0.6 x10^3/uL (0.0-1.1) Eosinophils # (Auto) 0.0 x10^3/uL (0.0-0.7) Basophils # (Auto) 0.0 x10^3/uL (0.0-0.2) Sodium Level 136 mmol/L (136-145) Potassium Level 3.2 mmol/L (3.5-5.1) Chloride Level 101 mmol/L (98-107) Carbon Dioxide Level 18 mmol/L (21-32) Anion Gap 17 (6-14) Blood Urea Nitrogen 6 mg/dL (7-20) Creatinine 0.6 mg/dL (0.6-1.0) Estimated GFR (Cockcroft-Gault) 125.6 BUN/Creatinine Ratio 10 (6-20) Glucose Level 223 mg/dL (70-99) Lactic Acid Level 0.5 mmol/L (0.4-2.0) Calcium Level 8.2 mg/dL (8.5-10.1) Total Bilirubin 0.5 mg/dL (0.2-1.0) Aspartate Amino Transf (AST/SGOT) 21 U/L (15-37) Alanine Aminotransferase (ALT/SGPT) 14 U/L (14-59) Alkaline Phosphatase 50 U/L (46-116) Total Protein 6.2 g/dL (6.4-8.2) Albumin 2.8 g/dL (3.4-5.0) Albumin/Globulin Ratio 0.8 (1.0-1.7) Glucose (Fingerstick) 222 mg/dL (70-99) 137 mg/dL (70-99) 152 mg/dL (70-99) Test 06/09/19 21:07 06/10/19 04:00 06/10/19 07:48 Glucose (Fingerstick) 120 mg/dL (70-99) 148 mg/dL (70-99) White Blood Count 5.3 x10^3/uL (4.0-11.0) Red Blood Count 3.40 x10^6/uL (3.50-5.40) Hemoglobin 10.7 g/dL (12.0-15.5) Hematocrit 31.2 % (36.0-47.0) Mean Corpuscular Volume 92 fL (79-100) Mean Corpuscular Hemoglobin 31 pg (25-35) Mean Corpuscular Hemoglobin Concent 34 g/dL (31-37) Red Cell Distribution Width 13.8 % (11.5-14.5) Platelet Count 138 x10^3/uL (140-400) Neutrophils (%) (Auto) 63 % (31-73) Lymphocytes (%) (Auto) 27 % (24-48) Monocytes (%) (Auto) 9 % (0-9) Eosinophils (%) (Auto) 0 % (0-3) Basophils (%) (Auto) 1 % (0-3) Neutrophils # (Auto) 3.3 x10^3/uL (1.8-7.7) Lymphocytes # (Auto) 1.4 x10^3/uL (1.0-4.8) Monocytes # (Auto) 0.5 x10^3/uL (0.0-1.1) Eosinophils # (Auto) 0.0 x10^3/uL (0.0-0.7) Basophils # (Auto) 0.0 x10^3/uL (0.0-0.2) Sodium Level 136 mmol/L (136-145) Potassium Level 3.1 mmol/L (3.5-5.1) Chloride Level 103 mmol/L (98-107) Carbon Dioxide Level 23 mmol/L (21-32) Anion Gap 10 (6-14) Blood Urea Nitrogen 5 mg/dL (7-20) Creatinine 0.6 mg/dL (0.6-1.0) Estimated GFR (Cockcroft-Gault) 125.6 Glucose Level 191 mg/dL (70-99) Calcium Level 8.1 mg/dL (8.5-10.1) Magnesium Level 2.1 mg/dL (1.8-2.4) Laboratory Tests Test 06/09/19 11:53 06/09/19 16:34 06/09/19 21:07 06/10/19 04:00 Glucose (Fingerstick) 137 mg/dL (70-99) 152 mg/dL (70-99) 120 mg/dL (70-99) White Blood Count 5.3 x10^3/uL (4.0-11.0) Red Blood Count 3.40 x10^6/uL (3.50-5.40) Hemoglobin 10.7 g/dL (12.0-15.5) Hematocrit 31.2 % (36.0-47.0) Mean Corpuscular Volume 92 fL (79-100) Mean Corpuscular Hemoglobin 31 pg (25-35) Mean Corpuscular Hemoglobin Concent 34 g/dL (31-37) Red Cell Distribution Width 13.8 % (11.5-14.5) Platelet Count 138 x10^3/uL (140-400) Neutrophils (%) (Auto) 63 % (31-73) Lymphocytes (%) (Auto) 27 % (24-48) Monocytes (%) (Auto) 9 % (0-9) Eosinophils (%) (Auto) 0 % (0-3) Basophils (%) (Auto) 1 % (0-3) Neutrophils # (Auto) 3.3 x10^3/uL (1.8-7.7) Lymphocytes # (Auto) 1.4 x10^3/uL (1.0-4.8) Monocytes # (Auto) 0.5 x10^3/uL (0.0-1.1) Eosinophils # (Auto) 0.0 x10^3/uL (0.0-0.7) Basophils # (Auto) 0.0 x10^3/uL (0.0-0.2) Sodium Level 136 mmol/L (136-145) Potassium Level 3.1 mmol/L (3.5-5.1) Chloride Level 103 mmol/L (98-107) Carbon Dioxide Level 23 mmol/L (21-32) Anion Gap 10 (6-14) Blood Urea Nitrogen 5 mg/dL (7-20) Creatinine 0.6 mg/dL (0.6-1.0) Estimated GFR (Cockcroft-Gault) 125.6 Glucose Level 191 mg/dL (70-99) Calcium Level 8.1 mg/dL (8.5-10.1) Magnesium Level 2.1 mg/dL (1.8-2.4) Test 06/10/19 07:48 Glucose (Fingerstick) 148 mg/dL (70-99) Microbiology 06/06/19 Blood Culture - Preliminary, Resulted NO GROWTH AFTER 3 DAYS Medications Current Medications Ondansetron HCl (Zofran) 4 mg 1X ONCE IV Last administered on 06/06/19at 14:45; Start 06/06/19 at 14:30; Stop 06/06/19 at 14:31; Status DC Sodium Chloride 1,000 ml @ 1,000 mls/hr 1X ONCE IV Last administered on 06/06/19at 14:45; Start 06/06/19 at 14:30; Stop 06/06/19 at 15:29; Status DC Sodium Chloride 1,000 ml @ 1,000 mls/hr 1X ONCE IV Last administered on 06/06/19at 14:46; Start 06/06/19 at 14:30; Stop 06/06/19 at 15:29; Status DC Insulin Human Regular 150 ml @ 0 mls/hr 1X ONCE IV Last administered on 1 08/07/18at 14:49; Start 06/06/19 at 14:30; Stop 06/06/19 at 14:31; Status DC Insulin Human Regular (HumuLIN R VIAL) 10 unit 1X ONCE IV Last administered on 06/06/19at 14:47; Start 06/06/19 at 14:30; Stop 06/06/19 at 14:31; Status DC Sodium Bicarbonate (Sodium Bicarb Adult 8.4% Syr) 50 meq 1X ONCE IV Last administered on 06/06/19at 15:56; Start 06/06/19 at 15:00; Stop 06/06/19 at 15:01; Status DC Sodium Chloride 1,000 ml @ 1,000 mls/hr 1X ONCE IV Last administered on 06/06/19at 16:36; Start 06/06/19 at 15:00; Stop 06/06/19 at 15:59; Status DC Fentanyl Citrate (Fentanyl 2ml Vial) 50 mcg 1X ONCE IVP Last administered on 06/06/19at 15:57; Start 06/06/19 at 15:30; Stop 06/06/19 at 15:31; Status DC Sodium Chloride 1,000 ml @ 70 mls/hr [id number] IV Last administered on 06/06/19at 16:39; Start 06/06/19 at 16:00; Stop 06/07/19 at 08:21; Status DC Sodium Bicarbonate 100 meq/Sodium Chloride 1,100 ml @ 80 mls/hr [id number] IV Last administered on 06/07/19at 06:16; Start 06/06/19 at 16:00; Stop 06/07/19 at 08:21; Status DC Piperacillin Sod/ Tazobactam Sod 3.375 gm/Sodium Chloride 50 ml @ 100 mls/hr Q6HRS IV Last administered on 06/08/19at 12:07; Start 06/06/19 at 16:00; Stop 06/08/19 at 16:54; Status DC Acetaminophen (Tylenol) 650 mg Q6HRS PRN PO MILD PAIN / TEMP Last administered on 06/07/19at 08:49; Start 06/06/19 at 15:45 Ondansetron HCl (Zofran) 4 mg PRN Q6HRS PRN IVP NAUSEA/VOMITING Last administered on 06/07/19at 20:55; Start 06/06/19 at 15:45 Influenza Virus Vaccine Quadrival (Afluria Quad 2019-20 (3yr Up) Syringe) 0.5 ml ONCE ONCE VAX IM ; Start 06/06/19 at 17:30; Stop 06/06/19 at 17:31; Status DC Dextrose/Sodium Chloride 1,000 ml @ 250 mls/hr Q4H IV Last administered on 06/07/19at 03:32; Start 06/06/19 at 19:00; Stop 06/07/19 at 08:21; Status DC Potassium Chloride/Water 100 ml @ 100 mls/hr Q1H IV Last administered on 06/07/19at 02:16; Start 06/06/19 at 22:00; Stop 06/07/19 at 01:59; Status DC Sodium Phosphate 20 mmol/Dextrose 256.6667 ml @ 62.5 mls/hr 1X PRN PRN IV SEE COMMENTS Last administered on 06/06/19at 22:40; Start 06/06/19 at 21:15 Insulin Human Regular 150 unit/ Sodium Chloride 151.5 ml @ 0 mls/hr CONT PRN IV SEE I/O RECORD Last administered on 06/07/19at 04:46; Start 06/07/19 at 00:30; Stop 06/07/19 at 10:47; Status DC Insulin Glargine (Lantus Syringe) 30 unit 1X SQ ; Start 06/07/19 at 08:30; Stop 06/07/19 at 10:55; Status DC Insulin Human Lispro (HumaLOG) 10 units TIDWMEALS SQ ; Start 06/07/19 at 08:30; Stop 06/07/19 at 10:47; Status DC Potassium Chloride (Klor-Con) 40 meq 1X ONCE PO Last administered on 06/07/19at 08:50; Start 06/07/19 at 08:30; Stop 06/07/19 at 08:31; Status DC Potassium Chloride (Klor-Con) 40 meq 1X ONCE PO Last administered on 06/07/19at 12:00; Start 06/07/19 at 12:00; Stop 06/07/19 at 12:01; Status DC Magnesium Sulfate 50 ml @ 25 mls/hr 1X ONCE IV Last administered on 06/07/19at 08:49; Start 06/07/19 at 08:30; Stop 06/07/19 at 10:29; Status DC Sodium Chloride 1,000 ml @ 60 mls/hr [id number] IV Last administered on 06/08/19at 20:22; Start 06/07/19 at 09:00; Stop 06/09/19 at 10:38; Status DC Insulin Human Lispro (HumaLOG) 4 units TIDWMEALS SQ Last administered on 06/08/19at 09:11; Start 06/07/19 at 12:00; Stop 06/08/19 at 10:54; Status DC Atorvastatin Calcium (Lipitor) 10 mg QHS PO Last administered on 06/09/19at 22:0 1; Start 06/07/19 at 21:00 Insulin Glargine (Lantus Syringe) 15 unit QHS SQ ; Start 06/08/19 at 21:00; Stop 06/08/19 at 10:54; Status DC Insulin Glargine (Lantus Syringe) 30 unit 1X ONCE SQ ; Start 06/07/19 at 11:00; Stop 06/07/19 at 11:01; Status DC Prochlorperazine Edisylate (Compazine) 5 mg PRN Q6HRS PRN IV NAUSEA/VOMITING 2ND CHOICE Last administered on 06/08/19 20:17; Start 06/07/19 at 23:15 Metoclopramide HCl (Reglan Vial) 10 mg PRN Q6HRS PRN IVP NAUSEA/VOMITING 3RD CHOICE; Start 06/07/19 at 23:15; Stop 06/08/19 at 10:54; Status DC Insulin Glargine (Lantus Syringe) 20 unit QHS SQ Last administered on 06/08/19 21:30; Start 06/08/19 at 21:00; Stop 06/09/19 at 10:38; Status DC Insulin Human Lispro (HumaLOG) 6 units TIDWMEALS SQ Last administered on 06/09/19 08:26; Start 06/08/19 at 12:00; Stop 06/09/19 at 10:38; Status DC Metoclopramide HCl (Reglan) 10 mg QIDACHS PO Last administered on 06/09/19 22:01; Start 06/08/19 at 11:30 Ondansetron HCl (Zofran Odt) 4 mg TIDAC PO Last administered on 06/09/19 16:49; Start 06/08/19 at 11:30 Sodium Bicarbonate (Sodium Bicarbonate) 1,300 mg BID PO Last administered on 06/09/19 22:01; Start 06/08/19 at 11:30 Lactobacillus Rhamnosus (Culturelle) 1 cap BID PO Last administered on 06/09/19 22:01; Start 06/08/19 at 21:00 Insulin Glargine (Lantus Syringe) 24 unit QHS SQ Last administered on 06/09/19at 22:20; Start 06/09/19 at 21:00 Insulin Human Lispro (HumaLOG) 8 units TIDWMEALS SQ Last administered on 06/09/19at 16:54; Start 06/09/19 at 12:00 Potassium Chloride (Klor-Con) 40 meq 1X ONCE PO Last administered on 06/09/19at 12:01; Start 06/09/19 at 11:00; Stop 06/09/19 at 11:01; Status DC Pantoprazole Sodium (Protonix) 40 mg DAILYAC PO ; Start 06/10/19 at 12:00; Stop 06/09/19 at 10:40; Status DC Al Hydroxide/Mg Hydroxide (Mylanta Plus Xs) 30 ml PRN Q2HR PRN PO HEARTBURN / GAS; Start 06/09/19 at 10:30 Sodium Chloride 1,000 ml @ 60 mls/hr [id number] IV Last administered on 06/10/19at 05:38; Start 06/09/19 at 10:30 Potassium Chloride (Klor-Con) 20 meq 1X ONCE PO Last administered on 06/09/19at 16:49; Start 06/09/19 at 16:00; Stop 06/09/19 at 16:01; Status DC Pantoprazole Sodium (Protonix) 40 mg DAILYAC PO Last administered on 06/09/19at 12:01; Start 06/09/19 at 12:00 Influenza Virus Vaccine Quadrival (Afluria Quad 2019-20 (3yr Up) Syringe) 0.5 ml ONCE ONCE VAX IM ; Start 06/10/19 at 09:30; Stop 06/10/19 at 09:31; Status UNV Active Scripts Active Reported Metformin Hcl 500 Mg Tablet 500 Mg PO BIDWMEALS Vitals/I & O Vital Sign - Last 24 Hours 06/09/19 06/09/19 06/09/19 06/09/19 11:59 15:59 19:00 23:00 Temp 98.2 98.3 98.5 98.5 98.2 98.3 98.5 98.5 Pulse 76 81 81 75 Resp 18 18 18 20 B/P (MAP) 138/78 (98) 134/75 (94) 145/70 (95) 102/70 (81) Pulse Ox 99 98 97 98 O2 Delivery Room Air Room Air Room Air Room Air 06/10/19 06/10/19 03:14 08:00 Temp 98.8 98.1 98.8 98.1 Pulse 75 73 Resp 18 16 B/P (MAP) 116/68 (84) 123/69 (87) Pulse Ox 98 97 O2 Delivery Room Air Room Air Intake and Output 06/09/19 06/09/19 06/10/19 15:00 23:00 07:00 Intake Total 200 ml 100 ml Output Total 0 ml Balance 200 ml 100 ml 0 ml ELKE RAYO MD Jun 10, 2019 09:56
[2019-06-10] MEDS ORDERED: POTASSIUM CHLORIDE 20 MEQ TABLET.ER. PO ONE (10:00)
[2019-06-10] MEDS ORDERED: PANT40TA77 PO (10:01)
[2019-06-10] MEDS ORDERED: ATOR10TA60 PO (10:01)
[2019-06-10] MEDS ORDERED: METO10TA PO (10:01)
[2019-06-10] MEDS ORDERED: ONDA4TAB12 PO (10:01)
[2019-06-10] MEDS ORDERED: INSU100V8 SQ (10:01)
[2019-06-10] MEDS ORDERED: INSU100I11 SQ (10:01)
--- NOTE | 2019-06-10 10:02 | DISCH ---
DISCHARGE INSTRUCTIONS Condition on Discharge Condition on Discharge: Stable Activity After Discharge Activity Instructions for Disc: Resume previous activity Diet after Discharge Diet after Discharge: Diabetic No Calorie Level Contacting the DRBrannon after DC Call your doctor for: Concerns you may have Follow-Up Follow up with: dr. rayo next week ELKE RAYO MD Jun 10, 2019 10:02
--- NOTE | 2019-06-10 10:08 | PDOC ---
Provider Note Provider Note discharge summary dictated # [id number] ELKE RAYO MD Jun 10, 2019 10:08
[2019-06-10 12:00] VITALS: BP 165/75
[2019-06-10] MEDS ORDERED: INSULIN LISPRO 300 UNITS/3 ML VIAL. SQ SCH (12:00)
[2019-06-10] MEDS ORDERED: PANTOPRAZOLE 40 MG TABLET.DR. PO SCH (12:00)
--- NOTE | 2019-06-10 15:10 | DS ---
DATE OF DISCHARGE: 06/10/2019 FINAL DIAGNOSES: 1. Diabetic ketoacidosis. 2. Persistent nausea and vomiting. 3. Hyponatremia. 4. Acute kidney injury. 5. Leukocytosis. 6. Suspected diabetic gastroparesis. CONSULTANTS: Dr. Gunnar Santiago and Dr. Whelan. HOSPITAL COURSE: The patient is a 53-year-old white female who was actually seen in the office prior to admission with a 2-week history of urine frequency and increased thirst and fatigue as well as dysuria. She has a history of gestational diabetes mellitus 30 years ago, but no other family history of diabetes mellitus. She does have one can of 7up daily and lost 13 pounds since 07/2018 in our office scale. She had not been seen in a long time in the office. She had 4+ urine and her blood sugar was 285 in the office and she was told to avoid sweets started metformin 500 mg b.i.d. and labs including hemoglobin A1c were obtained. She was also supposed to seen me in the office in 2 days. She apparently went out to dinner and then started having vomiting during the night 4 times and only took one dose of metformin 500 mg at night and she sought help at the [facility] Emergency Room, she was noted to be in diabetic ketoacidosis with an increased respiratory rate pH of 7.97, pCO2 of less than 5, bicarbonate was low. BUN 16, creatinine 1.4, potassium is 4.8. Lipase was elevated. She received insulin bolus and insulin drip and IV normal saline 3 liters in the Emergency Room and was admitted to the Intensive Care Unit where she was started on insulin drip. Her blood sugars did come down. She continued to have some nausea and vomiting. Eventually, then the insulin drip was discontinued the following day and she was started on Lantus and Humalog insulin before meals, but was not eating very well, had persistent nausea and vomiting despite Zofran before meals t.i.d. and every 6 hours p.r.n. She was started on metoclopramide for gastroparesis. She had a high white count and blood cultures were done, which were negative. She was seen by Dr. Gunnar Santiago for Infectious Disease. She received IV Zosyn, which eventually was discontinued. Blood cultures were negative. Her white count normalized. Sodium bicarbonate was less than 5. She received IV bicarbonate drip and oral sodium bicarbonate and sodium bicarbonate is now normal. Potassium was low at 3.1 today and she received potassium chloride. Yesterday later in the day, she started eating better and did not have any nausea or vomiting and her blood sugars were under much better control. Her blood sugar in the Emergency Room was over 500. This morning, her fasting blood sugar is 148, yesterday was 137 before lunch 152 before supper 120 at bedtime. Sodium 136, potassium 3.1, chloride 103, total CO2 23, BUN 5 and creatinine 0.6. It should be noted that she is eating much better. She did not take the 24 units of Levemir last night because her sugar was low at 120. She took only 5 units of Levemir. Fasting blood sugar is 148 today. She says she took 8 units of Humalog this morning. She received diabetic education, says she knows how to use a glucose meter now. We discussed to hold the Humalog if the blood sugar is less than 90 before meal. Check her blood sugars before meals t.i.d. and at bedtime. We discussed hypoglycemia and what to do regarding that, to check her blood sugars a.c. and at bedtime and to call me if there is any problems with her blood sugars, too low or too high. We discussed to get her blood sugars in the 100 to 150 would be at goal and to stick to her diabetic diet. She needs to avoid 7 up, sweets, juices and refined carbohydrates. She will make an appointment to see Dr. Anguiano in the office next week and bring her blood sugars also. She will be dismissed on metoclopramide 10 mg 1 tablet before meals t.i.d. and at bedtime, Zofran 4 mg p.o. every 6 hours p.r.n., atorvastatin was started at 10 mg at bedtime, her LDL was elevated, Protonix 40 mg p.o. every day, Humalog KwikPen 6 units before meals t.i.d. and Levemir insulin 10 units at bedtime. She was given a script for a glucose meter and test strips and lancets. Check her sugars before meals t.i.d. and at bedtime and she was given 40 mEq of potassium chloride today by mouth and will discontinue IV fluids. ELKE ANGUIANO MD DR: Lionel JOB#: [id number] / [id number]
--- NOTE | 2019-06-10 15:54 | NUR ---
Discharge Note: FLORENTIN ZHOU [address] Discharge instructions and discharge home medications reviewed with Patient and a copy given. All questions have been answered and understanding verbalized. The following instructions and handouts were given: patient visit report, medication information, education. Discontinued lines and drains: peripheral IV, tip intact. Patient discharged to home with self care via private vehicle. Patient left unit awake, in stable condition with all personal belongings.
[2019-06-10] MEDS ORDERED: INSULIN GLARGINE SYRINGE. SQ SCH (21:00)
== END 2019-06-10 13:20 | disposition home or self-care (01) | DRG 682 ==
LOC: ER 13:48 → 1 WEST ICU 14:17 → 5 SOUTH 06-07 15:47
PROVIDERS: ADMIT Internal Medicine; ATTEND Internal Medicine
DX: N17.9 Acute kidney failure, unspecified (principal); E11.10 Type 2 diabetes mellitus with ketoacidosis without coma; E43 Unspecified severe protein-calorie malnutrition; E87.1 Hypo-osmolality and hyponatremia; E11.43 Type 2 diabetes mellitus with diabetic autonomic (poly)neuropathy; D72.829 Elevated white blood cell count, unspecified; K31.84 Gastroparesis; E78.5 Hyperlipidemia, unspecified; E83.42 Hypomagnesemia; E87.6 Hypokalemia; Z79.4 Long term (current) use of insulin; Z86.32 Personal history of gestational diabetes; Z68.26 Body mass index [BMI] 26.0-26.9, adult
CPT/HCPCS: 36415; 36600; 71045; 80048; 80053; 80061; 82010; 82150; 82805; 82962; 83036; 83605; 83690; 83735; 84100; 84443; 85007; 85025; 85027; 87040; 90471; 90686; 93005; 96365; 96366; 96375; J0780; J1815; J2405; J2543; J3010; J3475; J3480; J7030; J7042; J8597; Q0162; 99291-25; G0378